=== PATIENT | male | born 1955 | race Caucasian/White ===

== ENCOUNTER 2018-07-08 13:28 | Inpatient (IN) ==
[2018-07-08] MEDS ORDERED: MethylPREDNISolone Sod Succinate Inj 125 MG/2 ML Vial IV.PUSH ONE (14:06)
--- NOTE | 2018-07-08 14:10 | ED ---
HPI General Chief complaint: Respiratory Symptoms Stated complaint: respiratory Time Seen by Provider: 07/08/18 14:06 History of Present Illness HPI narrative: This is a 63-year-old smoker with history of COPD, diabetes, hypertension, hyperlipidemia who presents for evaluation of dyspnea, wheezing and cough. Symptoms started 2 weeks ago. Initially he thought that it was just bronchitis and that he could control it at home however his symptoms have worsened which prompted evaluation. He reports that he is using his albuterol inhaler every 2-3 hours. He denies chest pain, fevers or chills, abdominal pain , nausea or vomiting, lower extremity edema. He reports that he is compliant with his medications. Symptoms are moderate. He has no other complaints at this time. Related Data Home Medications Medication Instructions Recorded Confirmed albuterol sulfate 2 puff INHALATION Q6H 07/08/18 07/08/18 etodolac 300 mg PO BID 07/08/18 07/08/18 glipizide 10 mg PO BID 07/08/18 07/08/18 hydrochlorothiazide 25 mg PO DAILY 07/08/18 07/08/18 metformin 500 mg PO BID 07/08/18 07/08/18 simvastatin [Zocor] 40 mg PO HS 07/08/18 07/08/18 tramadol 50 mg PO Q4-6H PRN 07/08/18 07/08/18 Allergies Allergy/AdvReac Type Severity Reaction Status Date / Time cephalexin Allergy Severe RASH Verified 07/08/18 14:29 Review of Systems ROS: all other systems reviewed are negative PMFSH Medical History Medical History Back pain (Acute) COPD (chronic obstructive pulmonary disease) (Acute) Diabetes (Acute) HTN (hypertension) (Acute) Surgical History Surgical History No history of previous surgery (Acute) Social History Social History Substance History: No History of Abuse Second Hand Smoke Exposure: Yes Smoking Status: Former smoker Tobacco Type: Cigarettes How Often Do You Have a Drink Containing Alcohol: Never Recent Travel in [facility] within the Last 8 Weeks: No Recent Out of Country Travel within the Last 8 Weeks: No Exam Narrative Exam Narrative: GENERAL: This is a well-developed well-nourished male in no acute distress. His vital signs have been reviewed. SKIN: Warm and dry. HEAD: Atraumatic. Normocephalic. EYES: Pupils equal and round. No scleral icterus. No injection or drainage. ENT: No nasal bleeding or discharge. Mucous membranes pink and moist. NECK: Trachea midline. No JVD. CARDIOVASCULAR: Regular rate and rhythm. No murmur appreciated. RESPIRATORY: No accessory muscle use. Diffuse inspiratory and expiratory wheezing noted bilaterally with prolonged expiratory phase. No crackles. GASTROINTESTINAL: Abdomen soft, non-tender, nondistended. Hepatic and splenic margins not palpable. MUSCULOSKELETAL: No obvious deformities. No clubbing. No cyanosis. No edema. NEUROLOGICAL: Awake and alert. No obvious cranial nerve deficits. Motor grossly within normal limits. Normal speech. Course Initial Documented Vital Signs Temperature 97.8 F 07/08/18 13:56 Pulse Rate 119 H 07/08/18 13:56 Respiratory Rate 26 H 07/08/18 13:56 Blood Pressure 215/98 H 07/08/18 13:56 Pulse Oximetry 94 L 07/08/18 13:56 Last Documented Vital Signs Temperature 97.8 F 07/08/18 13:56 Pulse Rate 104 H 07/08/18 15:59 Respiratory Rate 25 H 07/08/18 15:59 Blood Pressure 123/79 07/08/18 15:59 Pulse Oximetry 95 07/08/18 15:59 Medical Decision Making AURELIANO Attestation AURELIANO supervised visit: Yes Attestation: I was present with the advanced practitioner during the management of this patient. I discussed the case with the advanced practitioner and agree with the findings and plan as documented in their note except as noted below. 63yM presenting with COPD exacerbation x 2 weeks, worse over the past 2-3 days. The patient reports that he's been using his albuterol inhaler at home with minimal relief of symptoms. He had full-field bilateral wheeze on arrival, received solumedrol and 3 duonebs with some relief of symptoms but is still audibly wheezing. Hi magnesium is low and was aggressively repleted. He also had elevated BP on arrival which improved with 1 dose of enalapril. Case discussed with Dr. Bradford of [facility]. [facility] Narrative Medical decision making narrative: This is a 63-year-old male with history of COPD, hyperlipidemia who presents with 2 weeks of cough and dyspnea. On examination he has diffuse inspiratory and expiratory wheezing bilaterally. He is also hypertensive and tachycardic. The patient was placed on ECG monitoring pulse oximetry. Lab work, chest x-ray, twelve-lead EKG ordered. The patient will be given DuoNeb treatment, Solu-Medrol, enalapril. He will be monitored closely. Upon reexamination the patient feels slightly improved. His lab work has been reviewed. He has a magnesium of 1.1, his blood sugars 358. He will be given IV magnesium as well as azithromycin. His blood pressure is normalized. The patient was ambulated down the hallway. He sat back down and he reports persistent shortness of breath. He still has audible wheezing. His oxygen saturation is approximately 93%. At this point time the plan will be to admit him for COPD exacerbation for observation. He is agreeable. Medical Screen Exam Complete: Yes Emergency Medical Condition: Yes Differential Diagnosis Differential Diagnosis: COPD exacerbation, pulmonary embolism, bronchitis, pneumothorax, pleural effusion, new onset CHF, pneumonia Lab Data Result diagrams: 07/08/18 14:31 07/08/18 14:31 Lab Results 07/08/18 07/08/18 07/08/18 Range/Units 14:31 14:31 14:31 WBC 12.9 H (4.0-11.0) th/mm3 RBC 4.97 (4.50-5.90) mil/mm3 Hgb 15.5 (13.0-17.0) gm/dL Hct 46.2 (39.0-51.0) % MCV 93.0 (80.0-100.0) fL MCH 31.2 (27.0-34.0) pg MCHC 33.5 (32.0-36.0) % RDW 12.9 (11.6-17.2) % Plt Count 292 (150-450) th/mm3 MPV 9.5 (7.0-11.0) fL Neut % (Auto) 65.6 (16.0-70.0) % Lymph % (Auto) 14.9 (9.0-44.0) % Morton % (Auto) 8.1 H (0.0-8.0) % Eos % (Auto) 9.9 H (0.0-4.0) % Baso % (Auto) 1.5 (0.0-2.0) % Neut # (Auto) 8.5 H (1.8-7.7) th/mm3 Lymph # (Auto) 1.9 (1.0-4.8) th/mm3 Morton # (Auto) 1.0 H (0.0-0.9) th/mm3 Eos # (Auto) 1.3 H (0.0-0.4) th/mm3 Baso # (Auto) 0.2 (0.0-0.2) th/mm3 WBC Differential . Differential Comment Auto diff final Sodium 133 L (136-145) meq/L Potassium 3.8 (3.5-5.1) meq/L Chloride 93 L (98-107) meq/L Carbon Dioxide 31.6 (21.0-32.0) meq/L Anion Gap 8 (5-15) meq/L BUN 13 (7-18) mg/dL Creatinine 1.23 (0.60-1.30) mg/dL Estimated GFR 60 L (>89) mL/min Random Glucose 358 H (74-106) mg/dL Calcium 8.4 L (8.5-10.1) mg/dL Magnesium 1.1 L (1.5-2.5) mg/dL Total Bilirubin 0.4 (0.2-1.0) mg/dL AST 25 (15-37) U/L ALT 31 (12-78) U/L Alkaline Phosphatase 62 (45-117) U/L Total Creatine Kinase 92 (39-308) U/L Troponin I Less than 0.02 L (0.02-0.05) ng/mL B-Natriuretic Peptide 8 (0-100) pg/mL Total Protein 7.8 (6.4-8.2) g/dL Albumin 3.6 (3.4-5.0) g/dL Imaging Data Radiologist's impression: Chest X-Ray 07/08/18 14:06 CONCLUSION: No acute intrathoracic disease. Discharge Plan Discharge Disposition Patient Disposition: 30 Still Patient Discharge Condition Condition: Stable Discharge Details Diagnosis: COPD exacerbation, Hypomagnesemia Physicians Team ED Provider: Manda Tejeda ED Midlevel Provider: Dallas Morillo Primary Care Provider: [facility]ician 's Attending Provider: Felicita Bradford Status ED Status: Admitted Observation Patient
--- NOTE | 2018-07-08 14:55 | XR ---
EXAM DATE: 07/08/2018 2:06 PM EDT AGE/SEX: 63 years / Male INDICATIONS: COPD CLINICAL DATA: This is the patient's initial encounter. Patient reports that signs and symptoms have been present for 1 day and indicates a pain score of 0/10. MEDICAL/SURGICAL HISTORY: . diabetes None. COMPARISON: No prior exams available for comparison. FINDINGS: A single AP view of the chest demonstrates the lungs to be symmetrically aerated without evidence of mass, infiltrate or effusion. The cardiomediastinal contours are unremarkable. Osseous structures a re intact. CONCLUSION: No acute intrathoracic disease. Electronically signed by: Chucky Olivares MD 07/08/2018 2:54 PM EDT
[2018-07-08 14:57] LABS: Baso # (Auto) 0.2 th/mm3 (0.0-0.2); Baso % (Auto) 1.5 % (0.0-2.0); Eos # (Auto) 1.3 th/mm3 (0.0-0.4); Eos % (Auto) 9.9 % (0.0-4.0); Hematocrit 46.2 % (39.0-51.0); Hemoglobin 15.5 gm/dL (13.0-17.0); Lymph # (Auto) 1.9 th/mm3 (1.0-4.8); Lymph % (Auto) 14.9 % (9.0-44.0); Mean Corpuscular HGB Conc 33.5 % (32.0-36.0); Mean Corpuscular Hemoglobin 31.2 pg (27.0-34.0); Mean Platelet Volume 9.5 fL (7.0-11.0); Mono % (Auto) 8.1 % (0.0-8.0); Neut # (Auto) 8.5 th/mm3 (1.8-7.7); Neut % (Auto) 65.6 % (16.0-70.0); Platelet Count 292 th/mm3 (150-450); Red Blood Count 4.97 mil/mm3 (4.50-5.90); Red Cell Distribution Width 12.9 % (11.6-17.2); White Blood Count 12.9 th/mm3 (4.0-11.0)
[2018-07-08 15:30] LABS: Alanine Aminotransferase 31 U/L (12-78); Albumin 3.6 g/dL (3.4-5.0); Alkaline Phosphatase 62 U/L (45-117); Anion Gap 8 meq/L (5-15); Aspartate Aminotransferase 25 U/L (15-37); Blood Urea Nitrogen 13 mg/dL (7-18); Calcium 8.4 mg/dL (8.5-10.1); Carbon Dioxide 31.6 meq/L (21.0-32.0); Chloride 93 meq/L (98-107); Glomerular Filtration Rate 60 mL/min (>89); Glucose,Random 358 mg/dL (74-106); Magnesium 1.1 mg/dL (1.5-2.5); Sodium 133 meq/L (136-145); Total Protein 7.8 g/dL (6.4-8.2)
[2018-07-08 15:33] LABS: Creatine Kinase 92 U/L (39-308); Potassium 3.8 meq/L (3.5-5.1)
[2018-07-08] MEDS ORDERED: Mag Sulf 1 gm/100 ml Premix 100 ML IV.SIG ONE (15:38)
[2018-07-08] MEDS ORDERED: Magnesium Sulfate Inj 2 GM in Sodium Chlor 0.9% Inj 96 ML IV.SIG ONE ×2 (15:44→16:41)
[2018-07-08] MEDS ORDERED: Dextrose 50% in Water 50 ML Vial IV.PUSH PRN (16:56)
[2018-07-08] MEDS ORDERED: Bisacodyl 10 MG Supp RECTAL PRN (16:56)
--- NOTE | 2018-07-08 17:22 | P.HPIM ---
History of Present Illness Primary Care Physician: [facility] History of Present Illness: This patient is a 63-year-old male with a diagnosis of hypertension, dyspareunia , diabetes mellitus type 2. The patient has an extensive tobacco smoking history, he states he smokes approximately 2 packs/day over the past 40 years. He stopped smoking 3 weeks ago because of his shortness of breath. He came into the emergency department today with complaints of shortness of breath worse on exertion. He has a mild nonproductive cough. No fevers or chills. He denies any chest pain, no abdominal pain, no diarrhea. He uses an albuterol inhaler at home and was not getting any relief with inhaler. Past medical history significant for hypertension, dyspnea, diabetes mellitus type 2 Past surgical history none Social history he smokes 2 packs of cigarettes per day over the past 40 years. Over the past couple of years he has been smoking less a proximally 1 pack/day. He also has a history of marijuana use and denies any recent history of drug use. He says in his 20s he occasionally used speed. Family history significant for diabetes. Review of Systems All other systems reviewed negative except as stated in HPI PMFSH - History History Provided By: Patient - Medical History Medical History: Medical History (Last Updated 07/08/18 @ 14:26 by Gita Richmond) Back pain COPD (chronic obstructive pulmonary disease) Diabetes HTN (hypertension) - Surgical History Surgical History: Surgical History (Last Updated 07/08/18 @ 14:27 by Gita Richmond) No history of previous surgery - Tobacco History Second Hand Smoke Exposure: Yes Tobacco Use In Past 30 Days: Yes Smoking Status: Former smoker Tobacco Type: Cigarettes - Alcohol History How Often Do You Have a Drink Containing Alcohol: Never - Substance Use History Substance History: No History of Abuse - Travel History Recent Travel in the [place] Within the Last 8 Weeks: No Recent Travel Out of the Country Within the Last 8 Weeks: No - Immunization History Tetanus Immunization: <5 Years Medications and Allergies Active Medications: Active Medications Al Hydroxide/Mg Hydroxide (Milk Of Marija Liq) 30 ml PO Q12H PRN PRN Reason: Mild Constipation Albuterol (Albuterol Neb (Prn)) 2.5 mg NEB Q2H PRN PRN Reason: SHORTNESS OF BREATH Albuterol (Duoneb Neb (Emiliano)) 1 ampul NEB Q4HR NEB EMILIANO Bisacodyl (Dulcolax Supp) 10 mg RECTAL DAILY PRN PRN Reason: SEVERE CONSITIPATION Dextrose (D50w Vial) 50 ml IV.PUSH UNSCH PRN PRN Reason: PER HYPOGLYCEMIA PROTOCOL Enoxaparin Sodium (Lovenox Inj) 40 mg SQ Q24H EMILIANO Glucagon (Glucagon Inj) 1 mg OTHER PRN PRN PRN Reason: for Hypoglycemia Protocol Magnesium Sulfate 2 gm/ Sodium (Chloride) 100 mls @ 50 mls/hr IV.SIG ONCE ONE Stop: 07/08/18 17:43 Last Admin: 07/08/18 16:44 Dose: 50 mls/hr Magnesium Sulfate 2 gm/ Sodium (Chloride) 100 mls @ 50 mls/hr IV.SIG ONCE ONE Stop: 07/08/18 18:40 Last Admin: 07/08/18 16:44 Dose: Not Given Insulin Aspart (Novolog Insulin Correctional Sugar Inj) 0 unit SQ ACHS EMILIANO; Protocol Lactulose (Lactulose Liq) 30 ml PO DAILY PRN PRN Reason: SEVERE CONSITIPATION Methylprednisolone Sodium Succinate (Solumedrol Inj) 60 mg IV.PUSH Q6H EMILIANO Ondansetron HCl (Zofran Inj) 4 mg IV.PUSH Q6H PRN PRN Reason: NAUSEA OR VOMITING Senna/Docusate Sodium (Nikia-Colace) 1 tab PO BID EMILIANO Sennosides (Senokot) 17.2 mg PO Q12H PRN PRN Reason: Moderate Constipation Sodium Chloride (Ns Flush) 2 ml IV.FLUSH BID [facility] Sodium Chloride (Ns Flush) 2 ml IV.FLUSH PRN PRN PRN Reason: FLUSH AFTER USING IV ACCESS Sodium Chloride (Ns Flush) 2 ml IV.FLUSH PRN PRN PRN Reason: FLUSH AFTER USING IV ACCESS Allergies Allergy/AdvReac Type Severity Reaction Status Date / Time cephalexin Allergy Severe RASH Verified 07/08/18 14:29 Home Medications Medication Instructions Recorded Confirmed Type albuterol sulfate 2 puff INHALATION Q6H 07/08/18 07/08/18 History etodolac 300 mg PO BID 07/08/18 07/08/18 History glipizide 10 mg PO BID 07/08/18 07/08/18 History hydrochlorothiazide 25 mg PO DAILY 07/08/18 07/08/18 History metformin 500 mg PO BID 07/08/18 07/08/18 History simvastatin [Zocor] 40 mg PO HS 07/08/18 07/08/18 History tramadol 50 mg PO Q4-6H PRN 07/08/18 07/08/18 History Exam Vital signs: Vital Signs 07/08/18 13:56 07/08/18 14:26 07/08/18 14:45 Temperature 97.8 F Pulse Rate 119 H 106 H 101 H Respiratory Rate 26 H 27 H 18 Blood Pressure 215/98 H 224/111 H Pulse Oximetry 94 L 95 07/08/18 15:59 Temperature Pulse Rate 104 H Respiratory Rate 25 H Blood Pressure 123/79 Pulse Oximetry 95 Intake & Output 07/07/18 07/08/18 07/08/18 18:59 06:59 18:59 Weight 93.894 kg Narrative: General patient complaining of some shortness of breath HEENT extraocular movements are intact, clear oropharyngeal mucosa, no JVD Cardiovascular S1-S2 audible, RRR, no murmurs rubs or gallops Respiratory wheezing bilaterally Abdomen soft, nontender, nondistended, normal bowel sounds Extremities no edema 2+ distal pulses in bilateral upper and lower extremities Neuro no neurological deficits, patient was all 4 extremities sensation is intact bilaterally Results - Labs CBC & Chem 7: 07/08/18 14:31 07/08/18 14:31 Labs: Short CBC 07/08/18 Range/Units 14:31 WBC 12.9 H (4.0-11.0) th/mm3 Hgb 15.5 (13.0-17.0) gm/dL Hct 46.2 (39.0-51.0) % Plt Count 292 (150-450) th/mm3 [facility] 07/08/18 14:31 Sodium 133 L Potassium 3.8 Chloride 93 L Carbon Dioxide 31.6 BUN 13 Creatinine 1.23 Calcium 8.4 L Cardiac Enzymes 07/08/18 Range/Units 14:31 Total Creatine Kinase 92 (39-308) U/L Troponin I Less than 0.02 L (0.02-0.05) ng/mL Liver Function 07/08/18 Range/Units 14:31 Total Bilirubin 0.4 (0.2-1.0) mg/dL AST 25 (15-37) U/L ALT 31 (12-78) U/L Alkaline Phosphatase 62 (45-117) U/L Albumin 3.6 (3.4-5.0) g/dL - Imaging Impressions Chest X-Ray 07/08/18 14:06 CONCLUSION: No acute intrathoracic disease. Caprini VTE Risk Assessment Caprini VTE Risk Assessment: Moderate/High Risk (score >= 2) (Lovenox for DVT prophylaxis) Caprini Risk Assessment Model: Point Value = 1 Point Value = 2 Point Value = 3 Point Value = 5 Age 41-60 Minor surgery BMI > 25 kg/m2 Swollen legs Varicose veins or History of unexplained or recurrent spontaneous Oral contraceptives or hormone replacement Sepsis (< 1 month) Serious lung disease, including pneumonia (< 1 month) Abnormal pulmonary function Acute myocardial infarction Congestive heart failure (< 1 month) History of inflammatory bowel disease Medical patient at bed rest Age 61-74 Arthroscopic surgery Major open surgery (> 45 min) Laparoscopic surgery (> 45 min) Malignancy Confined to bed (> 72 hours) Immobilizing plaster cast Central venous access Age >= 75 History of VTE Family history of VTE Factor V Leiden Prothrombin [id number] Lupus anticoagulant Anticardiolipin antibodies Elevated serum homocysteine Heparin-induced thrombocytopenia Other congenital or acquired thrombophilia Stroke (< 1 month) Elective arthroplasty Hip, pelvis, or leg fracture Acute spinal cord injury (< 1 month) Prophylaxis Regimen: Total Risk Factor Score Risk Level Prophylaxis Regimen 0-1 Low Early ambulation 2 Moderate Order ONE of the following: *Sequential Compression Device (SCD) *Heparin 5000 units SQ BID 3-4 Higher Order ONE of the following medications: *Heparin 5000 units SQ TID *Enoxaparin/Lovenox 40 mg SQ daily (WT < 150 kg, CrCl > 30 mL/min) *Enoxaparin/Lovenox 30 mg SQ daily (WT < 150 kg, CrCl > 10-29 mL/min) *Enoxaparin/Lovenox 30 mg SQ BID (WT < 150 kg, CrCl > 30 mL/min) AND/OR *Sequential Compression Device (SCD) 5 or more Highest Order ONE of the following medications: *Heparin 5000 units SQ TID (Preferred with Epidurals) *Enoxaparin/Lovenox 40 mg SQ daily (WT < 150 kg, CrCl > 30 mL/min) *Enoxaparin/Lovenox 30 mg SQ daily (WT < 150 kg, CrCl > 10-29 mL/min) *Enoxaparin/Lovenox 30 mg SQ BID (WT < 150 kg, CrCl > 30 mL/min) AND *Sequential Compression Device (SCD) Assessment and Plan - Plan This patient is a 63-year-old male with a diagnosis of hypertension, dyspareunia , diabetes mellitus type 2. The patient has an extensive tobacco smoking history, he states he smokes approximately 2 packs/day over the past 40 years. He stopped smoking 3 weeks ago because of his shortness of breath. He came into the emergency department today with complaints of shortness of breath worse on exertion. He has a mild nonproductive cough. No fevers or chills. He denies any chest pain, no abdominal pain, no diarrhea. He uses an albuterol inhaler at home and was not getting any relief with inhaler. 1. COPD exacerbation Patient presented with symptoms mentioned above. There is a significant amount of wheezing on auscultation bilaterally. Patient is also tachycardic, slight elevation in WBC count. He was given a breathing treatment in the emergency department. He was started on IV steroids, breathing treatments, p.o. antibiotics. Chest x-ray was done which does not show any clear evidence of infiltrate. Patient was placed in observation, monitor on telemetry. Supplemental oxygen as needed. 2. Electrolyte abnormalities. Patient had a low magnesium level 1.1. Initial lites were replaced. Lovenox for DVT prophylaxis.
[2018-07-08] MEDS: Sod Chloride 0.9% Inj 1,000 ML IV.CONT SCH (17:55)
[2018-07-08] MEDS: Enoxaparin Inj 40 MG/0.4 ML Syringe SQ SCH (17:56)
[2018-07-08] MEDS: levoFLOXacin 750 MG Tablet PO SCH (17:56)
[2018-07-08] MEDS: Insulin NovoLOG Aspart Correctional Sugar Inj SQ SCH ×2 (17:56→23:35)
[2018-07-08] MEDS: MethylPREDNISolone Sod Succinate Inj 125 MG/2 ML Vial IV.PUSH SCH (19:48)
[2018-07-08] MEDS: Senna/Docusate Sodium 8.6/50 MG Tablet PO SCH (22:07)
[2018-07-09] MEDS: MethylPREDNISolone Sod Succinate Inj 125 MG/2 ML Vial IV.PUSH SCH ×4 (02:52→21:58)
[2018-07-09] MEDS: Sod Chloride 0.9% Inj 1,000 ML IV.CONT SCH ×3 (04:08→18:21)
[2018-07-09] MEDS: Insulin NovoLOG Aspart Correctional Sugar Inj SQ SCH ×4 (07:57→21:59)
[2018-07-09] MEDS: Senna/Docusate Sodium 8.6/50 MG Tablet PO SCH ×3 (07:59→21:58)
[2018-07-09] MEDS: levoFLOXacin 750 MG Tablet PO SCH (07:59)
[2018-07-09] MEDS: guaiFENesin 600 MG ER Tablet PO SCH ×2 (11:41→21:57)
[2018-07-09] MEDS: glipiZIDE 10 MG Tablet PO SCH ×2 (11:41→17:35)
[2018-07-09] MEDS: Insulin Detemir Inj 1,000 UNIT/10 ML Vial SQ SCH ×2 (11:41→21:59)
[2018-07-09 12:10] LABS: Carbon Dioxide 26.9 meq/L (21.0-32.0); Magnesium 1.2 mg/dL (1.5-2.5); Potassium 3.3 meq/L (3.5-5.1)
[2018-07-09] MEDS: Budesonide-Formoterol 160/4.5 MCG 6 GM Inhaler INH SCH ×2 (13:04→21:57)
[2018-07-09] MEDS: Tiotropium Bromide 18 MCG/ACT Inhaler INH SCH (13:04)
[2018-07-09] MEDS ORDERED: Magnesium Oxide 400 MG Tablet PO ONE (14:38)
--- NOTE | 2018-07-09 14:47 | P.PN ---
Subjective Interval history: Follow-up on patient with diabetes, COPD exacerbation. Patient seen and examined. Patient continues to report wheezing and shortness of breath especially with minimal exertion. He denies any complaints of chest pain. He denies any fever or chills. He reports feeling congested with a dry cough and is unable to cough anything up. Physical Exam Vital signs: Vital Signs 07/08/18 14:45 07/08/18 15:59 07/08/18 18:05 Temperature Pulse Rate 101 H 104 H 106 H Respiratory Rate 18 25 H 28 H Blood Pressure 123/79 Pulse Oximetry 95 07/08/18 20:00 07/08/18 23:22 07/09/18 00:00 Temperature 97.6 F 97.7 F Pulse Rate 123 H 115 H 115 H Respiratory Rate 16 22 16 Blood Pressure 124/81 112/69 Pulse Oximetry 93 L 95 98 07/09/18 03:15 07/09/18 08:00 07/09/18 08:08 Temperature 98.8 F Pulse Rate 107 H 118 H 102 H Respiratory Rate 18 18 16 Blood Pressure 154/87 H Pulse Oximetry 93 L 94 L 07/09/18 11:53 07/09/18 11:58 Temperature 98.1 F Pulse Rate 117 H 114 H Respiratory Rate 16 18 Blood Pressure 149/78 H Pulse Oximetry 99 Intake & Output 07/08/18 07/09/18 07/09/18 18:59 06:59 18:59 Intake Total 1050 / 1050 Balance 1050 / 1050 Weight 207 kg Intake: IV 1050 / 1050 NS Inj 1,000 ML @ 84 mls/hr IV. 1000 / 1000 CONT .[id number] [facility] Rx#:[id number] Magnesium Sulfate Inj 2 GM In 50 / 50 NS Inj 96 ML @ 50 mls/hr IV.SIG ONCE ONE Rx#:[id number] Other: # Voids 3 Date of Last Bowel Movement 07/10/18 07/10/18 Weight On Admission 207 kg Narrative: GENERAL: WDWN male patient, INAD. Awake and alert. Able to have conversation without any noticeable respiratory difficulties. SKIN: Warm and dry. No rash. HEENT: Atraumatic. Normocephalic. Pupils equal and round. No scleral icterus. No injection or drainage. No nasal bleeding or discharge. Mucous membranes pink and moist. NECK: Trachea midline. CARDIOVASCULAR: Regular rate and rhythm. RESPIRATORY: No accessory muscle use. Tight air entry with diffuse wheezing noted in all lung adames. GASTROINTESTINAL: Abdomen soft, non-tender, nondistended. +BS. MUSCULOSKELETAL: Extremities without clubbing, cyanosis, or edema. No obvious deformities. NEUROLOGICAL: Awake and alert. No obvious cranial nerve deficits. Motor grossly within normal limits. Able to move all extremities spontaneously. Normal speech. PSYCHIATRIC: Appropriate mood and affect; insight and judgment normal. Results - Labs CBC & Chem 7: 07/08/18 14:31 07/09/18 11:09 Laboratory Results - last 24 hr 07/08/18 07/08/18 07/08/18 14:31 14:31 14:31 WBC 12.9 H RBC 4.97 Hgb 15.5 Hct 46.2 MCV 93.0 MCH 31.2 MCHC 33.5 RDW 12.9 Plt Count 292 MPV 9.5 Neut % (Auto) 65.6 Lymph % (Auto) 14.9 Knox % (Auto) 8.1 H Eos % (Auto) 9.9 H Baso % (Auto) 1.5 Neut # (Auto) 8.5 H Lymph # (Auto) 1.9 Knox # (Auto) 1.0 H Eos # (Auto) 1.3 H Baso # (Auto) 0.2 WBC Differential . Differential Comment Auto diff final Sodium 133 L Potassium 3.8 Chloride 93 L Carbon Dioxide 31.6 Anion Gap 8 BUN 13 Creatinine 1.23 Estimated GFR 60 L POC Glucose Random Glucose 358 H Calcium 8.4 L Magnesium 1.1 L Total Bilirubin 0.4 AST 25 ALT 31 Alkaline Phosphatase 62 Total Creatine Kinase 92 Troponin I Less than 0.02 L B-Natriuretic Peptide 8 Total Protein 7.8 Albumin 3.6 07/08/18 07/08/18 07/08/18 17:55 21:47 23:40 WBC RBC Hgb Hct MCV MCH MCHC RDW Plt Count MPV Neut % (Auto) Lymph % (Auto) Knox % (Auto) Eos % (Auto) Baso % (Auto) Neut # (Auto) Lymph # (Auto) Knox # (Auto) Eos # (Auto) Baso # (Auto) WBC Differential Differential Comment Sodium Potassium Chloride Carbon Dioxide Anion Gap BUN Creatinine Estimated GFR POC Glucose 401 H 547 H* Random Glucose 484 H* D Calcium Magnesium Total Bilirubin AST ALT Alkaline Phosphatase Total Creatine Kinase Troponin I B-Natriuretic Peptide Total Protein Albumin 07/09/18 07/09/18 07/09/18 03:38 07:29 11:09 WBC RBC Hgb Hct MCV MCH MCHC RDW Plt Count MPV Neut % (Auto) Lymph % (Auto) Knox % (Auto) Eos % (Auto) Baso % (Auto) Neut # (Auto) Lymph # (Auto) Knox # (Auto) Eos # (Auto) Baso # (Auto) WBC Differential Differential Comment Sodium 133 L Potassium 3.3 L Chloride 94 L Carbon Dioxide 26.9 Anion Gap 12 BUN 20 H Creatinine 1.51 H Estimated GFR 47 L POC Glucose 392 H 386 H Random Glucose 417 H Calcium 8.0 L Magnesium 1.2 L Total Bilirubin AST ALT Alkaline Phosphatase Total Creatine Kinase Troponin I B-Natriuretic Peptide Total Protein Albumin 07/09/18 07/09/18 12:01 13:12 WBC RBC Hgb Hct MCV MCH MCHC RDW Plt Count MPV Neut % (Auto) Lymph % (Auto) Knox % (Auto) Eos % (Auto) Baso % (Auto) Neut # (Auto) Lymph # (Auto) Knox # (Auto) Eos # (Auto) Baso # (Auto) WBC Differential Differential Comment Sodium Potassium Chloride Carbon Dioxide Anion Gap BUN Creatinine Estimated GFR POC Glucose 412 H 385 H Random Glucose Calcium Magnesium Total Bilirubin AST ALT Alkaline Phosphatase Total Creatine Kinase Troponin I B-Natriuretic Peptide Total Protein Albumin - Imaging Impressions Chest X-Ray 07/08/18 14:06 CONCLUSION: No acute intrathoracic disease. Assessment and Plan - Plan 63yo male with PMHX of heavy tobacco use, HTN and DM type 2 admitted with COPD exacerbation COPD, acute exacerbation CXR with no acute cardiopulmonary process Patient still with tight air entry and significant wheezing on exam Continue on scheduled DuoNeb Continue on oral Levaquin Continue on IV steroids Add Symbicort and Spiriva Begin Mucinex Incentive spirometry as needed Patient may need home oxygen walk test prior to discharge ALLY Creatinine 1.51 hold home Metformin and HCTZ on IVF obtain UA avoid nephrotoxic agents monitor kidney function Hypertension hold HCTZ as above Start Norvasc 5mg daily Monitor BP and adjust treatment accordingly Diabetes, poorly controlled Patient with elevated blood sugars on IV steroids Resume home glipizide Begin on long-acting Levemir 5 units twice daily Obtain hemoglobin A1c Continue on Accu-Cheks and insulin sliding scale Hypokalemia K 3.3 po repletion ordered repeat BMP in am to monitor response Hypomagnesemia Mag level 1.1 replacement given, Mag 1.2 give 800mg x 1 dose now repeat mag in am DVT prophylaxis Lovenox Code Status: Full Discussed Condition With: patient, nursing staff, Dr. Flores Discharge Planning: Not ready for discharge. Discharge pending clinical improvement.
[2018-07-09] MEDS: amLODIPine 5 MG Tablet PO SCH (16:32)
[2018-07-09] MEDS: Enoxaparin Inj 40 MG/0.4 ML Syringe SQ SCH (17:35)
[2018-07-09 18:00] LABS: Hemoglobin A1c 11.4 % (4.3-6.0)
[2018-07-09] MEDS ORDERED: Metoprolol Tartrate 25 MG Tablet PO ONE (18:00)
[2018-07-10] MEDS: MethylPREDNISolone Sod Succinate Inj 125 MG/2 ML Vial IV.PUSH SCH ×2 (02:58→08:50)
--- NOTE | 2018-07-10 07:59 | P.PN ---
Subjective Interval history: Follow-up on patient with diabetes, COPD exacerbation. Patient seen and examined. Patient complains of shortness of breath and heart palpitations with coughing episodes. He denies any sputum production. He denies any complaints of chest pain, dizziness, lightheadedness or weakness. Physical Exam Vital signs: Vital Signs 07/09/18 08:00 07/09/18 08:08 07/09/18 11:53 Temperature 98.8 F Pulse Rate 118 H 102 H 117 H Respiratory Rate 18 16 16 Blood Pressure 154/87 H Pulse Oximetry 93 L 94 L 07/09/18 11:58 07/09/18 16:00 07/09/18 16:21 Temperature 98.1 F 98.1 F Pulse Rate 114 H 122 H 104 H Respiratory Rate 18 16 20 Blood Pressure 149/78 H 118/66 Pulse Oximetry 99 94 L 07/09/18 18:21 07/09/18 19:25 07/09/18 20:00 Temperature 97.7 F Pulse Rate 108 H 100 H Respiratory Rate 18 19 Blood Pressure 111/62 103/66 Pulse Oximetry 95 93 L 07/09/18 23:51 07/10/18 04:00 Temperature 97.1 F L 97.5 F L Pulse Rate 102 H 90 Respiratory Rate 19 18 Blood Pressure 137/64 147/77 H Pulse Oximetry 93 L 93 L Intake & Output 07/09/18 07/10/18 07/10/18 18:59 06:59 18:59 Other: # Voids 4 Date of Last Bowel Movement 07/10/18 07/10/18 Narrative: GENERAL: WDWN male patient, INAD. Awake and alert. Able to have conversation without any noticeable respiratory difficulties. SKIN: Warm and dry. No rash. HEENT: Atraumatic. Normocephalic. Pupils equal and round. No scleral icterus. No injection or drainage. No nasal bleeding or discharge. Mucous membranes pink and moist. NECK: Trachea midline. CARDIOVASCULAR: Tachycardic. RESPIRATORY: No accessory muscle use. Tight air entry with diffuse wheezing noted in all lung adames, improving with improved air entry. GASTROINTESTINAL: Abdomen soft, non-tender, nondistended. +BS. MUSCULOSKELETAL: Extremities without clubbing, cyanosis, or edema. No obvious deformities. NEUROLOGICAL: Awake and alert. No obvious cranial nerve deficits. Motor grossly within normal limits. Able to move all extremities spontaneously. Normal speech. PSYCHIATRIC: Appropriate mood and affect; insight and judgment normal. Results - Labs CBC & Chem 7: 07/08/18 14:31 07/10/18 07:30 Laboratory Results - last 24 hr 07/09/18 07/09/18 07/09/18 11:09 11:09 12:01 Sodium 133 L Potassium 3.3 L Chloride 94 L Carbon Dioxide 26.9 Anion Gap 12 BUN 20 H Creatinine 1.51 H Estimated GFR 47 L POC Glucose 412 H Random Glucose 417 H Hemoglobin A1c 11.4 H Calcium 8.0 L Magnesium 1.2 L 07/09/18 07/09/18 07/09/18 13:12 17:31 21:28 Sodium Potassium Chloride Carbon Dioxide Anion Gap BUN Creatinine Estimated GFR POC Glucose 385 H 386 H 311 H Random Glucose Hemoglobin A1c Calcium Magnesium Assessment and Plan - Plan 63yo male with PMHX of heavy tobacco use, HTN and DM type 2 admitted with COPD exacerbation New onset afib with RVR HR 135, EKG obtained showing afib with RVR, HR in 160s CHADsVASc score 2 patient denies any complaints of chest pain, shortness of breath, dizziness or palpitations patient placed on telemetry Patient given Diltiazem 20mg IVP by [facility] nurse with no improvement in HR Will transfer patient to [facility] and began on Cardizem drip Consult cardiology, appreciate assistance Obtain echocardiogram Obtain serial cardiac enzymes Obtain TSH Start on Eliquis COPD, acute exacerbation CXR with no acute cardiopulmonary process Patient still with tight air entry and significant wheezing on exam Continue on scheduled DuoNeb -concerned that albuterol may be contributing to patient's A. fib. Change to Xopenex. Continue on oral Levaquin Continue on IV steroids, begin taper to po steroids Continue on Symbicort and Spiriva Continue Mucinex Incentive spirometry as needed Home oxygen walk test completed, patient did not qualify ALLY Creatinine 1.51, improved to 1.11 continue to hold home HCTZ and Metformin obtain UA - specimen not sent avoid nephrotoxic agents monitor kidney function Hypertension hold HCTZ as above Started on Norvasc 5mg daily - will d/c as patient now on Cardizem drip Monitor BP and adjust treatment accordingly Diabetes, poorly controlled A1c 11.4 Patient with elevated blood sugars on IV steroids Resumed home glipizide, continue Increase Levemir to 10 units twice daily. Begin preprandial coverage with 3u Aspart TIDAC. Continue on Accu-Cheks and insulin sliding scale Hypokalemia K 3.3 resolved s/p repletion Hypomagnesemia Mag level 1.1 replacement given, Mag 1.6 give 400mg x 1 dose now DVT prophylaxis Eliquis Code Status: Full Discussed Condition With: patient, nursing staff, Dr. Flores Discharge Planning: Not ready for discharge. Discharge pending clinical improvement and cardiac clearance.
[2018-07-10 08:36] LABS: Calcium 7.7 mg/dL (8.5-10.1); Carbon Dioxide 29.5 meq/L (21.0-32.0); Magnesium 1.6 mg/dL (1.5-2.5)
[2018-07-10] MEDS: amLODIPine 5 MG Tablet PO SCH (08:51)
[2018-07-10] MEDS: levoFLOXacin 750 MG Tablet PO SCH (08:51)
[2018-07-10] MEDS: Insulin NovoLOG Aspart Correctional Sugar Inj SQ SCH ×4 (08:51→21:29)
[2018-07-10] MEDS: glipiZIDE 10 MG Tablet PO SCH ×2 (08:51→16:46)
[2018-07-10] MEDS: guaiFENesin 600 MG ER Tablet PO SCH ×2 (08:51→21:13)
[2018-07-10] MEDS: Insulin Detemir Inj 1,000 UNIT/10 ML Vial SQ SCH ×2 (08:51→21:16)
[2018-07-10] MEDS: Senna/Docusate Sodium 8.6/50 MG Tablet PO SCH ×2 (08:54→21:22)
[2018-07-10] MEDS: Tiotropium Bromide 18 MCG/ACT Inhaler INH SCH (08:54)
[2018-07-10] MEDS: Budesonide-Formoterol 160/4.5 MCG 6 GM Inhaler INH SCH ×2 (08:54→21:14)
[2018-07-10] MEDS ORDERED: Insulin Detemir Inj 1,000 UNIT/10 ML Vial SQ ONE (10:45)
[2018-07-10] MEDS ORDERED: Magnesium Oxide 400 MG Tablet PO ONE (11:00)
[2018-07-10] MEDS ORDERED: dilTIAZem 30 MG Tablet PO ONE (13:00)
[2018-07-10] MEDS: dilTIAZem Inj 125 MG in Sodium Chlor 0.9% Inj 100 ML IV.CONT PRN (14:36)
[2018-07-10] MEDS ORDERED: MethylPREDNISolone Sod Succinate Inj 125 MG/2 ML Vial IV.PUSH SCH (15:00)
--- NOTE | 2018-07-10 17:20 | ECHRPT ---
Indication: ATRIAL FIB/FLUTTER CONCLUSIONS Very technically difficult study. The left ventricular systolic function is moderately reduced with an estimated ejection fraction in the range of 40-45%. There is global left ventricular dysfunction. The right ventricular systoilc function is moderately decreased. Trace mitral valve regurgitation. There is trace tricuspid valve regurgitation. BP: / HR: Rhythm: Sinus MEASUREMENTS (Male / Female) Normal Values Technical Quality:Very technically difficult study 2D ECHO LVOT Diameter 1.5 cm Aortic Root Diameter 2.0 cm DOPPLER AV Peak Velocity 117.3 cm/s AV Peak Gradient 5.5 mmHg AV Mean Gradient 2.7 mmHg AV Velocity Time Integral 13.7 cm LVOT Peak Velocity 87.7 cm/s LVOT Peak Gradient 3.1 mmHg LVOT Velocity Time Integral 12.0 cm AV Area Cont Eq vti 1.5 cm AV Area Cont Eq pk 1.3 cm Mitral E Point Velocity 86.8 cm/s LV E' Lateral Velocity 11.1 cm/s Mitral E to LV E' Lateral Ratio 7.8 LV E' Septal Velocity 9.3 cm/s Mitral E to LV E' Septal Ratio 9.4 FINDINGS LEFT VENTRICLE Normal left ventricular size. Wall thickness is normal. The left ventricular systolic function is moderately reduced with an estimated ejection fraction in the range of 40-45%. There is global left ventricular dysfunction. RIGHT VENTRICLE The right ventricular size is normal. The right ventricular systoilc function is moderately decreased. LEFT ATRIUM The left atrial size is normal. RIGHT ATRIUM The right atrium is not well visualized. ATRIAL SEPTUM The interatrial septum not well visualized. AORTA The aortic root and proximal ascending aorta are not well visualized. MITRAL VALVE Grossly normal Trace mitral valve regurgitation. No mitral valve stenosis. AORTIC VALVE Grossly normal No aortic valve regurgitation. No aortic valve stenosis. TRICUSPID VALVE Grossly normal There is trace tricuspid valve regurgitation. PULMONARY VALVE The pulmonary valve is not well visualized. VESSELS The inferior vena cava is normal in size. PERICARDIUM No pericardial effusion. Quentin Long DO (Electronically Signed) Final Date:10 July 2018 17:19
[2018-07-10 18:09] LABS: Thyroid Stimulating Hormone 0.765 uIU/mL (0.358-3.740); Troponin I 0.09 ng/mL (0.02-0.05)
[2018-07-10 18:43] LABS: CKMB Percent 2.3 % (0.0-4.0)
[2018-07-10] MEDS: RESP: Levalbuterol 1.25 MG/3 ML Neb (SCH) NEB (20:20)
[2018-07-10 23:31] LABS: Troponin I 0.17 ng/mL (0.02-0.05)
--- NOTE | 2018-07-11 02:03 | ECG ---
Date Performed: 07/08/2018 Time Performed: 14:11:21 PTAGE: 63 years EKG: SINUS TACHYCARDIA ABNORMAL RHYTHM ECG NO PREVIOUS TRACING DOCTOR: Quentin Long Interpretating Date/Time 07/11/2018 02:01:30
[2018-07-11] MEDS: dilTIAZem Inj 125 MG in Sodium Chlor 0.9% Inj 100 ML IV.CONT PRN (02:35)
[2018-07-11 06:15] LABS: Hematocrit 42.5 % (39.0-51.0); Hemoglobin 14.2 gm/dL (13.0-17.0); Mean Corpuscular HGB Conc 33.5 % (32.0-36.0); Mean Corpuscular Hemoglobin 31.3 pg (27.0-34.0); Mean Corpuscular Volume 93.6 fL (80.0-100.0); Mean Platelet Volume 9.4 fL (7.0-11.0); Platelet Count 288 th/mm3 (150-450); Red Blood Count 4.55 mil/mm3 (4.50-5.90); Red Cell Distribution Width 12.9 % (11.6-17.2)
--- NOTE | 2018-07-11 06:40 | MB ---
cc: Quentin Long DO DATE: 07/10/2018 REASON FOR CONSULTATION: Atrial fibrillation with rapid ventricular response. HISTORY OF PRESENT ILLNESS: Bacilio Perry is a pleasant 63-year-old male who presented to [facility] Emergency Room due to shortness of breath. He states that the shortness of breath has been worse with exertion and has had a mild nonproductive cough. He denies fevers or chills. He denies any chest pain. He was found to be in atrial fibrillation with rapid ventricular response and started on a Cardizem drip, currently at 10 mg/hour. PAST MEDICAL HISTORY: 1. Hypertension. 2. Diabetes mellitus type 2. 3. Tobacco abuse. PAST SURGICAL HISTORY: Denies. ALLERGIES: CEPHALEXIN. MEDICATIONS: 1. Albuterol 2 puffs every 6 hours. 2. Tramadol 50 mg as needed. 3. Hydrochlorothiazide 25 mg daily. 4. Zocor 40 mg every night. 5. Etodolac 300 mg b.i.d. 6. Glipizide 10 mg b.i.d. 7. Metformin 500 mg b.i.d. SOCIAL HISTORY: The patient previously smoked 2 packs of cigarettes per day for the past 40 years. Over the past couple of years, he smoked less than a pack a day. He has tried to stop smoking over the past 3 weeks due to his shortness of breath. In his 20s he also used speed. FAMILY HISTORY: Denies sudden cardiac within the family. REVIEW OF SYSTEMS: Fourteen systems were reviewed including osteopathic. Pertinent positives and negatives above, otherwise negative. PHYSICAL EXAMINATION: VITAL SIGNS: Temperature 98.1, heart rate 135, blood pressure 131/73, respirations 18, pulse oximetry 94% on room air. GENERAL: The patient appears well, in no acute distress, alert, awake, and oriented x3. HEENT: Extraocular muscles intact. Mucous membranes moist. NECK: Supple. No JVD at 45 degrees. No carotid bruits heard bilaterally. Carotid upstroke is brisk in nature. HEART: Irregularly irregular and tachycardic. LUNGS: Have wheezing noted throughout with minimal air movement. ABDOMEN: Soft, nontender, nondistended. No organomegaly noted. EXTREMITIES: Show no clubbing, cyanosis, or edema. Femoral and distal pulses are intact bilaterally. NEUROLOGIC: No focal deficits. SKIN: Warm, dry, and intact. OSTEOPATHIC: Mild lordosis. No kyphoscoliosis or paraspinal tender points. DIAGNOSTIC DATA: Hemoglobin 15.5, hematocrit 46.2, platelets 292. Potassium 4.0, BUN 25, creatinine 1.11. Troponin 0.09. TSH is 0.765. Electrocardiogram (07/10/2018 at 12:28): Atrial fibrillation with rapid ventricular response, minimal ST depressions throughout. ASSESSMENT: 1. New onset atrial fibrillation with rapid ventricular response. 2. Acute chronic obstructive pulmonary disease exacerbation. 3. Acute kidney injury. 4. Cardiomyopathy with an ejection fraction of 40%-45%. RECOMMENDATIONS: 1. Mr. Perry presented with an acute COPD exacerbation and was found to be in atrial fibrillation with rapid ventricular response. 2. He has been placed on a Cardizem drip at 10 mg/hour and is still tachycardic. We will attempt to up this to 15 mg/hour. 3. If heart rate is still elevated on Cardizem at 15 mg/hour, we will plan on doing a JAZMIN with cardioversion in the morning. He will be left n.p.o. after midnight. 4. He does have a minimally elevated troponin, but this is due to his atrial fibrillation with rapid ventricular response. 5. He does have a cardiomyopathy with an ejection fraction of 40%-45%, but this is most likely due to his atrial fibrillation and cardiac stenting. He should eventually undergo a pharmacologic nuclear stress test due to the cardiomyopathy, but also the atrial fibrillation, to see if any ischemia is possibly the cause of these. At this time with his COPD exacerbation, I would not plan on doing it due to the risk of bronchospasm. This can be done in the outpatient setting. 6. As he has a CHADS-VASc of 2, he will be started on Eliquis for anticoagulation. 7. I spoke to him for greater than 3 minutes about tobacco cessation. Thank you for allowing me to see Bacilio Perry. If there are any questions, please do not hesitate to call. Quentin Long, DO COLBERT/alyssia , 11:59 PM , 12:10 AM
[2018-07-11 06:45] LABS: Calcium 7.9 mg/dL (8.5-10.1); Carbon Dioxide 30.6 meq/L (21.0-32.0); Potassium 3.8 meq/L (3.5-5.1)
[2018-07-11] MEDS: RESP: Levalbuterol 1.25 MG/3 ML Neb (SCH) NEB ×3 (07:55→21:22)
[2018-07-11] MEDS: predniSONE 20 MG Tablet PO SCH (08:43)
[2018-07-11] MEDS: glipiZIDE 10 MG Tablet PO SCH ×2 (08:44→17:50)
[2018-07-11] MEDS: levoFLOXacin 750 MG Tablet PO SCH (08:44)
[2018-07-11] MEDS: guaiFENesin 600 MG ER Tablet PO SCH ×2 (08:44→20:27)
[2018-07-11] MEDS: Senna/Docusate Sodium 8.6/50 MG Tablet PO SCH ×2 (08:45→20:29)
[2018-07-11] MEDS: Budesonide-Formoterol 160/4.5 MCG 6 GM Inhaler INH SCH ×2 (08:46→20:29)
[2018-07-11] MEDS: Tiotropium Bromide 18 MCG/ACT Inhaler INH SCH (08:46)
[2018-07-11] MEDS: Insulin NovoLOG Aspart Correctional Sugar Inj SQ SCH ×4 (08:47→21:07)
--- NOTE | 2018-07-11 09:27 | P.PN ---
Subjective Interval history: This is a pleasant 63 y/o Male with Heavy tobacco dependence, Hypertension, DM II, who was admitted with COPD exacerbation. 07/11: Called by Director Of Marketing [employer] the patient meets inpatient management will switch to inpatient. patient seen in his bedroom, no nausea, vomit or diarrhea, status post JAZMIN with Cardioversion, recommended to continue Eliquis 5 mg BID and changed to Cardizem 30 mg every six hours. can be discharged on CT 120 mg daily on discharge. Cardiomyopathy most likely tachycardia induced with need to repeat echo in a few months now that heart rates controlled, Minimally elevated troponin, type 2 due to COPD exacerbation and elevated rates, eventual outpatient stress test, unable to do inpatient due to COPD exacerbation with risk of bronchospasm Physical Exam Vital signs: Vital Signs 07/10/18 10:06 07/10/18 10:15 07/10/18 11:45 Temperature 98.1 F Pulse Rate 74 135 H Respiratory Rate 24 18 Blood Pressure 131/73 Pulse Oximetry 94 L Pulse Oximetry [Exertion on Room Air] 90 L Pulse Oximetry [Resting on Room Air] 93 L 07/10/18 13:09 07/10/18 15:00 07/10/18 16:00 Temperature 98.2 F Pulse Rate 115 H 161 H 137 H Respiratory Rate 20 20 Blood Pressure 131/66 Pulse Oximetry 95 Pulse Oximetry [Exertion on Room Air] Pulse Oximetry [Resting on Room Air] 07/10/18 17:00 07/10/18 18:00 07/10/18 19:00 Temperature Pulse Rate 166 H 149 H 130 H Respiratory Rate 22 Blood Pressure 130/80 Pulse Oximetry 95 Pulse Oximetry [Exertion on Room Air] Pulse Oximetry [Resting on Room Air] 07/10/18 20:00 07/10/18 20:23 07/10/18 21:00 Temperature Pulse Rate 124 H 110 H 136 H Respiratory Rate 35 H Blood Pressure Pulse Oximetry 97 Pulse Oximetry [Exertion on Room Air] Pulse Oximetry [Resting on Room Air] 07/10/18 22:00 07/10/18 23:00 07/11/18 00:00 Temperature Pulse Rate 114 H 104 H 95 H Respiratory Rate 22 Blood Pressure 109/58 L Pulse Oximetry 94 L Pulse Oximetry [Exertion on Room Air] Pulse Oximetry [Resting on Room Air] 07/11/18 03:00 07/11/18 04:00 07/11/18 05:00 Temperature Pulse Rate 99 H 94 H Respiratory Rate Blood Pressure 115/74 Pulse Oximetry Pulse Oximetry [Exertion on Room Air] Pulse Oximetry [Resting on Room Air] 07/11/18 06:00 07/11/18 07:00 07/11/18 07:55 Temperature 97.5 F L Pulse Rate 86 100 H 83 Respiratory Rate 20 16 Blood Pressure 120/80 Pulse Oximetry 96 97 Pulse Oximetry [Exertion on Room Air] Pulse Oximetry [Resting on Room Air] 07/11/18 08:00 Temperature Pulse Rate Respiratory Rate Blood Pressure Pulse Oximetry 95 Pulse Oximetry [Exertion on Room Air] Pulse Oximetry [Resting on Room Air] Intake & Output 07/10/18 07/11/18 07/11/18 18:59 06:59 18:59 Intake Total 1760 / 1760 365 / 365 Output Total 1050 / 1050 Balance 1760 / 1760 -685 / -685 Intake: IV 800 / 800 125 / 125 NS Inj 1,000 ML @ 50 mls/hr IV. 800 / 800 CONT .Q20H SHADI Rx#:[id number] Cardizem Inj 125 MG In NS Inj 125 / 125 100 ML @ 5 MG/HR 5 mls/hr IV. CONT TITRATE PRN Rx#:[id number] Oral 960 / 960 240 / 240 Output: Urine 1050 / 1050 Other: # Voids 3 Date of Last Bowel Movement 07/10/18 07/10/18 07/10/18 Narrative: GENERAL: no acute distress. SKIN: Warm and dry. No rash. HEENT: mucous membranes wet. NECK: Trachea midline. CARDIOVASCULAR: Sinus rhythm, no murmurs. RESPIRATORY: Severe decreased breath sounds bilateral, with expiratory and inspiratory wheezing. GASTROINTESTINAL: Abdomen soft, non-tender, nondistended. +BS. MUSCULOSKELETAL: Extremities without clubbing, cyanosis, or edema. No obvious deformities. NEUROLOGICAL: Awake and alert. No obvious cranial nerve deficits. PSYCHIATRIC: Appropriate mood and affect; insight and judgment normal. Results - Labs CBC & Chem 7: 07/11/18 05:24 07/11/18 05:24 Laboratory Results - last 24 hr 07/10/18 07/10/18 07/10/18 12:47 16:04 16:52 WBC RBC Hgb Hct MCV MCH MCHC RDW Plt Count MPV Sodium Potassium Chloride Carbon Dioxide Anion Gap BUN Creatinine Estimated GFR POC Glucose 409 H 392 H Random Glucose Calcium Total Creatine Kinase 309 H CK-MB (CK-2) 7.0 H CK-MB (CK-2) % 2.3 Troponin I 0.09 H TSH 0.765 07/10/18 07/10/18 07/10/18 16:52 21:25 22:25 WBC RBC Hgb Hct MCV MCH MCHC RDW Plt Count MPV Sodium Potassium Chloride Carbon Dioxide Anion Gap BUN Creatinine Estimated GFR POC Glucose 331 H Random Glucose Calcium Total Creatine Kinase 307 CK-MB (CK-2) CK-MB (CK-2) % Troponin I 0.17 H TSH Cancelled 07/11/18 07/11/18 07/11/18 05:24 05:24 07:47 WBC 25.0 H RBC 4.55 Hgb 14.2 Hct 42.5 MCV 93.6 MCH 31.3 MCHC 33.5 RDW 12.9 Plt Count 288 MPV 9.4 Sodium 139 Potassium 3.8 Chloride 100 Carbon Dioxide 30.6 Anion Gap 8 BUN 29 H Creatinine 1.13 Estimated GFR 66 L POC Glucose 211 H Random Glucose 191 H Calcium 7.9 L Total Creatine Kinase CK-MB (CK-2) CK-MB (CK-2) % Troponin I TSH - Imaging Chest X-Ray 07/08/18 14:06 CONCLUSION: No acute intrathoracic disease. - Procedures JAZMIN with cardioversion. Assessment and Plan - Plan This is a pleasant 63 y/o Male with Heavy tobacco dependence, Hypertension, DM II, who was admitted with COPD exacerbation. 1. New onset of Atrial Fibrillation with RVR CHADsVASc score 2, Received Diltiazem 20 mg IVP by [facility] nurse without improvement, transferred to [facility] started on Eliquis, position classification specialist following doctor Ethan EF 40-45% , recommended to continue Cardizem drip, 07/11: Status post JAZMIN with Cardioversion, recommended to continue Eliquis 5 mg BID and changed to Cardizem 30 mg every six hours. can be discharged on CT 120 mg daily on discharge. Cardiomyopathy most likely tachycardia induced with need to repeat echo in a few months now that heart rates controlled, Minimally elevated troponin, type 2 due to COPD exacerbation and elevated rates, eventual outpatient stress test, unable to do inpatient due to COPD exacerbation with risk of bronchospasm 2. COPD exacerbation CXR with no acute cardiopulmonary process, continue Bronchodilator, Mucolytic and incentive spirometry Levaquin by mouth, IV steroids, tapering to PO steroids, Home Oxygen and walk test patient did not qualify for Home Oxygen 3. ALLY on hold HCTZ and Metformin his Creatinine improved. 4. Hypertension on hold HCTZ, started on Amlodipine 5 mg daily, Cardizem drip 5. DM II Hemoglobin A1C 11.4, uncontrolled resumed his Glipizide and continue Levemir sliding scale, 3 units Aspart TIDAC. 6. electrolyte derangement replacing and following. DVT prophylaxis Eliquis Code Status: Full code. Discussed Condition With: patient and Nurse, also discussed with position classification specialist Doctor Long. Discharge Planning: Once cleared by position classification specialist.
[2018-07-11] MEDS: Insulin Detemir Inj 1,000 UNIT/10 ML Vial SQ SCH ×2 (13:18→21:05)
[2018-07-11] MEDS: dilTIAZem 30 MG Tablet PO SCH ×3 (13:20→20:27)
--- NOTE | 2018-07-11 13:34 | ECG ---
Date Performed: 07/10/2018 Time Performed: 12:28:05 PTAGE: 63 years EKG: ATRIAL FIBRILLATION WITH RAPID VENTRICULAR RESPONSE MODERATE ST DEPRESSION ABNORMAL ECG atr ial fibrillation is new since prior tracing Clinical correlation is recommended PREVIOUS TRACING : 07/08/2018 14.11 DOCTOR: Delfino Martini Interpretating Date/Time 07/11/2018 13:33:13
--- NOTE | 2018-07-11 21:56 | P.PNCA ---
Subjective Interval history: No events overnight Afib overnight, s/p JAZMIN with cardioversion, now sinus rhythm Medications and Allergies Active Medications: Active Medications Al Hydroxide/Mg Hydroxide (Milk Of Magnmony Liq) 30 ml PO Q12H PRN PRN Reason: Mild Constipation Albuterol (Albuterol Neb (Prn)) 2.5 mg NEB Q2HR NEB PRN PRN Reason: SHORTNESS OF BREATH Last Admin: 07/10/18 10:15 Dose: 2.5 mg Apixaban (Eliquis) 5 mg PO BID [facility] Last Admin: 07/11/18 20:27 Dose: 5 mg Aspirin (Aspirin Chew) 81 mg PO DAILY [facility] Last Admin: 07/11/18 08:44 Dose: 81 mg Bisacodyl (Dulcolax Supp) 10 mg RECTAL DAILY PRN PRN Reason: SEVERE CONSITIPATION Budesonide/Formoterol Fumarate (Symbicort 160/4.5 Mcg Inh) 2 puff INH BID [facility] Last Admin: 07/11/18 20:29 Dose: 2 puff Dextrose (D50w Vial) 50 ml IV.PUSH UNSCH PRN PRN Reason: PER HYPOGLYCEMIA PROTOCOL Diltiazem HCl (Cardizem) 30 mg PO QID [facility] Last Admin: 07/11/18 20:27 Dose: 30 mg Glipizide (Glucotrol) 10 mg PO BIDAC [facility] Last Admin: 07/11/18 17:50 Dose: 10 mg Glucagon (Glucagon Inj) 1 mg OTHER PRN PRN PRN Reason: for Hypoglycemia Protocol Guaifenesin (Mucinex Er) 600 mg PO BID [facility] Last Admin: 07/11/18 20:27 Dose: 600 mg Diltiazem HCl 125 mg/ Sodium (Chloride) 125 mls @ 5 mls/hr IV.CONT TITRATE PRN ; Protocol PRN Reason: Per Protocol Last Admin: 07/11/18 02:35 Dose: 5 mg/hr, 5 mls/hr Insulin Aspart (Novolog Insulin Correctional Sugar Inj) 0 unit SQ ACHS [facility]; Protocol Last Admin: 07/11/18 21:07 Dose: 7 unit Insulin Aspart (Novolog Inj) 3 units SQ TIDAC [facility] Last Admin: 07/11/18 17:50 Dose: 3 units Insulin Detemir (Levemir Inj) 10 unit SQ BID [facility] Last Admin: 07/11/18 21:05 Dose: 10 unit Lactulose (Lactulose Liq) 30 ml PO DAILY PRN PRN Reason: SEVERE CONSITIPATION Levalbuterol HCl (Xopenex Neb) 1.25 mg NEB Q6HR WHILE AWAKE NEB [facility] Last Admin: 07/11/18 21:22 Dose: 1.25 mg Levofloxacin (Levaquin) 750 mg PO DAILY [facility] Last Admin: 07/11/18 08:44 Dose: 750 mg Metformin HCl (Glucophage) 500 mg PO BIDPC [facility] Last Admin: 07/09/18 11:41 Dose: 500 mg Ondansetron HCl (Zofran Inj) 4 mg IV.PUSH Q6H PRN PRN Reason: NAUSEA OR VOMITING Pravastatin Sodium (Pravachol) 80 mg PO HS [facility] Last Admin: 07/11/18 20:27 Dose: 80 mg Prednisone (Deltasone) 40 mg PO DAILY [facility] Last Admin: 07/11/18 08:43 Dose: 40 mg Senna/Docusate Sodium (Nikia-Colace) 1 tab PO BID [facility] Last Admin: 07/11/18 20:29 Dose: Not Given Sennosides (Senokot) 17.2 mg PO Q12H PRN PRN Reason: Moderate Constipation Sodium Chloride (Ns Flush) 2 ml IV.FLUSH BID [facility] Last Admin: 07/11/18 20:28 Dose: 2 ml Sodium Chloride (Ns Flush) 2 ml IV.FLUSH PRN PRN PRN Reason: FLUSH AFTER USING IV ACCESS Tiotropium Gibson (Spiriva 18 Mcg Inh) 18 mcg INH DAILY [facility] Last Admin: 07/11/18 08:46 Dose: 18 mcg Allergies Allergy/AdvReac Type Severity Reaction Status Date / Time cephalexin Allergy Severe RASH Verified 07/08/18 14:29 Home Medications Medication Instructions Recorded Confirmed Type etodolac 300 mg PO BID 07/08/18 07/08/18 History glipizide 10 mg PO BID 07/08/18 07/08/18 History hydrochlorothiazide 25 mg PO DAILY 07/08/18 07/08/18 History metformin 500 mg PO BID 07/08/18 07/08/18 History simvastatin [Zocor] 40 mg PO HS 07/08/18 07/08/18 History tramadol 50 mg PO Q4-6H PRN 07/08/18 07/08/18 History Physical Exam Vital signs: Vital Signs 07/10/18 22:00 07/10/18 23:00 07/11/18 00:00 Temperature Pulse Rate 114 H 104 H 95 H Respiratory Rate 22 Blood Pressure 109/58 L Pulse Oximetry 94 L 07/11/18 03:00 07/11/18 04:00 07/11/18 05:00 Temperature Pulse Rate 99 H 94 H Respiratory Rate Blood Pressure 115/74 Pulse Oximetry 07/11/18 06:00 07/11/18 07:00 07/11/18 07:55 Temperature 97.5 F L Pulse Rate 86 99 H 83 Respiratory Rate 20 16 Blood Pressure 120/80 Pulse Oximetry 96 97 07/11/18 08:00 07/11/18 09:00 07/11/18 10:00 Temperature Pulse Rate 92 H 102 H 92 H Respiratory Rate Blood Pressure Pulse Oximetry 95 07/11/18 11:00 07/11/18 12:00 07/11/18 13:00 Temperature 97.8 F Pulse Rate 118 H 77 100 H Respiratory Rate 22 Blood Pressure 127/82 Pulse Oximetry 94 L 07/11/18 13:22 07/11/18 14:00 07/11/18 15:00 Temperature 97.9 F Pulse Rate 93 H 110 H 79 Respiratory Rate 18 22 Blood Pressure 124/79 Pulse Oximetry 94 L 07/11/18 16:00 07/11/18 17:00 07/11/18 18:00 Temperature Pulse Rate 84 88 73 Respiratory Rate Blood Pressure Pulse Oximetry 07/11/18 21:22 07/11/18 21:26 Temperature Pulse Rate 93 H Respiratory Rate 18 Blood Pressure Pulse Oximetry 96 Intake & Output 07/11/18 07/11/18 07/12/18 06:59 18:59 06:59 Intake Total 365 / 365 1160 / 1160 Output Total 1050 / 1050 Balance -685 / -685 1160 / 1160 Intake: IV 125 / 125 Cardizem Inj 125 MG In NS Inj 125 / 125 100 ML @ 5 MG/HR 5 mls/hr IV. CONT TITRATE PRN Rx#:[id number] Oral 240 / 240 1160 / 1160 Output: Urine 1050 / 1050 Other: # Voids 5 Date of Last Bowel Movement 07/10/18 07/11/18 # Bowel Movements 2 Narrative: GENERAL: WDWN male patient, INAD. Awake and alert. Able to have conversation without any noticeable respiratory difficulties. SKIN: Warm and dry. No rash. HEENT: Atraumatic. Normocephalic. Pupils equal and round. No scleral icterus. No injection or drainage. No nasal bleeding or discharge. Mucous membranes pink and moist. NECK: Trachea midline. CARDIOVASCULAR: RRR, +S1/2 RESPIRATORY: No accessory muscle use. Tight air entry with diffuse wheezing noted in all lung adames, improving with improved air entry. GASTROINTESTINAL: Abdomen soft, non-tender, nondistended. +BS. MUSCULOSKELETAL: Extremities without clubbing, cyanosis, or edema. No obvious deformities. NEUROLOGICAL: Awake and alert. No obvious cranial nerve deficits. Motor grossly within normal limits. Able to move all extremities spontaneously. Normal speech. PSYCHIATRIC: Appropriate mood and affect; insight and judgment normal. Results 07/11/18 05:24 07/11/18 05:24 Cardiac Enzymes 07/10/18 07/10/18 Range/Units 16:52 22:25 CK-MB (CK-2) 7.0 H (0.5-3.6) ng/mL Troponin I 0.09 H 0.17 H (0.02-0.05) ng/mL CBC 07/11/18 Range/Units 05:24 WBC 25.0 H (4.0-11.0) th/mm3 RBC 4.55 (4.50-5.90) mil/mm3 Hgb 14.2 (13.0-17.0) gm/dL Hct 42.5 (39.0-51.0) % Plt Count 288 (150-450) th/mm3 Comprehensive Metabolic Panel 07/10/18 07/11/18 Range/Units 07:30 05:24 Sodium 136 139 (136-145) meq/L Potassium 4.0 3.8 (3.5-5.1) meq/L Chloride 99 100 (98-107) meq/L Carbon Dioxide 29.5 30.6 (21.0-32.0) meq/L BUN 25 H 29 H (7-18) mg/dL Creatinine 1.11 1.13 (0.60-1.30) mg/dL Calcium 7.7 L 7.9 L (8.5-10.1) mg/dL Intake and Output 07/11/18 07/11/1807/11/18 06:59 14:59 22:59 Intake Total 365 / 365 1160 / 1160 Output Total 1050 / 1050 Balance -685 / -685 1160 / 1160 Intake: IV 125 / 125 Cardizem Inj 125 MG In NS Inj 125 / 125 100 ML @ 5 MG/HR 5 mls/hr IV. CONT TITRATE PRN Rx#:[id number] Oral 240 / 240 1160 / 1160 Output: Urine 1050 / 1050 Other: # Voids 5 Date of Last Bowel Movement 07/10/18 07/10/18 07/11/18 # Bowel Movements 2 Assessment and Plan - Assessment (1) Afib Code(s): I48.91 - Unspecified atrial fibrillation Status: Acute (2) Elevated troponin Code(s): R74.8 - Abnormal levels of other serum enzymes Status: Acute (3) COPD exacerbation Code(s): J44.1 - Chronic obstructive pulmonary disease with (acute) exacerbation Status: Acute - Plan 1) COPD exacerbation Per primary team 2) Afib with RVR s/p JAZMIN with cardioversion Now in sinus rhythm Con't on Eliquis Changed to Cardizem 30mg q6hrs Can be changed to Cardizem CD 120mg daily on discharge 3) Cardiomyopathy Most likely tachycardia induced Will need repeat echo in a few months now that heart rates controlled 4) Minimally elevated trop Type 2 due to COPD exacerbation and elevated heart rates Eventual outpt stress test, unable to do inpatient due to COPD exacerbation with risk of bronchospasm 5) Tobacco cessation
--- NOTE | 2018-07-11 21:59 | P.PCNCA ---
- Cardiology Procedure Note Procedure: Cardioversion for AFib with RVR Procedure Date: 07/11/18 Procedure Detail: After informed consent, patient was sedated by anesthesia for JAZMIN with cardioversion. During JAZMIN, no cardiac thrombus was noted, please see report for full details. Patient was placed in a prone position with pads anterior and posterior. He was cardioverted to sinus rhythm with one shock at 200J. He tolerated the procedure well.
--- NOTE | 2018-07-11 22:08 | ECHRPT ---
Indication: ATRIAL FIB/FLUTTER CONCLUSIONS The left ventricular systolic function is moderately reduced with an estimated ejection fraction in the range of 40-45%. There is global left ventricular dysfunction. The right ventricular systoilc function is mildly decreased. Normal left atrial appendage size with no evidence of thrombus formation. Trace mitral valve regurgitation. BP: / HR: Rhythm: Atrial fibrillation Technical Quality:Fair Medications Complications Proc. Components Anesthesia at the bedside for sedation FINDINGS LEFT VENTRICLE Normal left ventricular size. The left ventricular systolic function is moderately reduced with an estimated ejection fraction in the range of 40-45%. There is global left ventricular dysfunction. RIGHT VENTRICLE The right ventricular size is normal. The right ventricular systoilc function is mildly decreased. LEFT ATRIUM The left atrial size is normal. RIGHT ATRIUM The right atrial size is normal. ATRIAL APPENDAGES Normal left atrial appendage size with no evidence of thrombus formation. ATRIAL SEPTUM Normal atrial septal thickness without atrial level shunting by limited color doppler interrogation. AORTA The aortic root and proximal ascending aorta are normal in size on limited imaging. MITRAL VALVE Structurally normal mitral valve. Trace mitral valve regurgitation. No mitral valve stenosis. AORTIC VALVE Trileaflet aortic valve. No aortic valve stenosis or regurgitation. TRICUSPID VALVE Structurally normal tricuspid valve. No tricuspid valve stenosis or regurgitation. Quentin Long DO (Electronically Signed) Final Date:11 July 2018 22:06
[2018-07-12] MEDS: RESP: Levalbuterol 1.25 MG/3 ML Neb (SCH) NEB ×3 (08:17→13:39)
[2018-07-12] MEDS: Insulin NovoLOG Aspart Correctional Sugar Inj SQ SCH ×2 (09:25→11:48)
[2018-07-12] MEDS: Insulin Detemir Inj 1,000 UNIT/10 ML Vial SQ SCH (09:26)
[2018-07-12] MEDS: guaiFENesin 600 MG ER Tablet PO SCH (09:27)
[2018-07-12] MEDS: dilTIAZem 30 MG Tablet PO SCH ×2 (09:27→13:27)
[2018-07-12] MEDS: predniSONE 20 MG Tablet PO SCH (09:27)
[2018-07-12] MEDS: levoFLOXacin 750 MG Tablet PO SCH (09:27)
[2018-07-12] MEDS: Tiotropium Bromide 18 MCG/ACT Inhaler INH SCH (09:28)
[2018-07-12] MEDS: Budesonide-Formoterol 160/4.5 MCG 6 GM Inhaler INH SCH (09:28)
[2018-07-12] MEDS: Senna/Docusate Sodium 8.6/50 MG Tablet PO SCH (09:28)
[2018-07-12] MEDS: glipiZIDE 10 MG Tablet PO SCH (09:38)
[2018-07-12 11:46] VITALS: BP 128/81; TEMP 98.3; O2SAT 94
[2018-07-12 13:41] VITALS: RESP 20
--- NOTE | 2018-07-12 14:24 | P.DS ---
Date of admission: 07/11/18 12:02 Primary care physician: Physician [facility] Attending physician on discharge: Ryan Garza Anticipated date of discharge: 07/12/18 Brief History from admission: This patient is a 63-year-old male with a diagnosis of hypertension, dyspareunia , diabetes mellitus type 2. The patient has an extensive tobacco smoking history, he states he smokes approximately 2 packs/day over the past 40 years. He stopped smoking 3 weeks ago because of his shortness of breath. He came into the emergency department today with complaints of shortness of breath worse on exertion. He has a mild nonproductive cough. No fevers or chills. He denies any chest pain, no abdominal pain, no diarrhea. He uses an albuterol inhaler at home and was not getting any relief with inhaler. Past medical history significant for hypertension, dyspnea, diabetes mellitus type 2 Past surgical history none Social history he smokes 2 packs of cigarettes per day over the past 40 years. Over the past couple of years he has been smoking less a proximally 1 pack/day. He also has a history of marijuana use and denies any recent history of drug use. He says in his 20s he occasionally used speed. Family history significant for diabetes. DS: Diagnosis - Discharge Diagnosis (1) Afib Status: Acute (2) COPD exacerbation Status: Acute DS: Medications - Discharge Medications Prescriptions: albuterol sulfate 2.5 mg NEB Q2HR NEB PRN 30 Days #1 box PRN Reason: Shortness Of Breath albuterol sulfate 2 puff INHALATION Q2H PRN 30 Days #1 inhaler PRN Reason: Shortness Of Breath Or Wheezing amlodipine [Norvasc] 5 mg PO DAILY #30 tab budesonide-formoterol [Symbicort] 2 puff INH BID 30 Days #1 inhaler guaifenesin [Mucinex] 600 mg PO BID 7 Days #14 tab insulin detemir U-100 [Levemir U-100 Insulin] 10 unit SUBCUT BID 30 Days #6 ml prednisone 10 mg PO DAILY #32 tab tiotropium bromide [Spiriva with HandiHaler] 18 mcg INH DAILY 30 Days #1 inh DS: Summary Hospital Course: This is a pleasant 63 y/o Male with Heavy tobacco dependence, Hypertension, DM II, who was admitted with COPD exacerbation. 07/11: Called by Teacher Hearing Impaired the patient meets inpatient management will switch to inpatient. patient seen in his bedroom, no nausea, vomit or diarrhea, status post JAZMIN with Cardioversion, recommended to continue Eliquis 5 mg BID and changed to Cardizem 30 mg every six hours. can be discharged on CT 120 mg daily on discharge. Cardiomyopathy most likely tachycardia induced with need to repeat echo in a few months now that heart rates controlled, Minimally elevated troponin, type 2 due to COPD exacerbation and elevated rates, eventual outpatient stress test, unable to do inpatient due to COPD exacerbation with risk of bronchospasm 07/12: Seen in his bedroom, stable on sinus rhythm, recommended by allergy and immunology specialist for discharge on Eliquis 5 mg BID and Diltiazem CD 120 mg daily. no nausea, vomit or diarrhea. Results - Labs CBC & Chem 7: 07/11/18 05:24 07/11/18 05:24 Laboratory Results - last 24 hr 07/11/18 07/11/18 07/12/18 17:00 21:02 07:45 POC Glucose 312 H 264 H 87 07/12/18 07/12/18 11:47 13:57 POC Glucose 142 H 302 H Assessment and Plan - Plan This is a pleasant 63 y/o Male with Heavy tobacco dependence, Hypertension, DM II, who was admitted with COPD exacerbation. 1. New onset of Atrial Fibrillation with RVR CHADsVASc score 2, Received Diltiazem 20 mg IVP by [facility] nurse without improvement, transferred to [facility] started on Eliquis, allergy and immunology specialist following doctor Ethan EF 40-45% , recommended to continue Cardizem drip, 07/11: Status post JAZMIN with Cardioversion, recommended to continue Eliquis 5 mg BID and changed to Cardizem 30 mg every six hours. can be discharged on CT 120 mg daily on discharge. Cardiomyopathy most likely tachycardia induced with need to repeat echo in a few months now that heart rates controlled, Minimally elevated troponin, type 2 due to COPD exacerbation and elevated rates, eventual outpatient stress test, unable to do inpatient due to COPD exacerbation with risk of bronchospasm, recommended for discharge by allergy and immunology specialist. 2. COPD exacerbation CXR with no acute cardiopulmonary process, continue Bronchodilator, Mucolytic and incentive spirometry Levaquin by mouth, IV steroids, tapering to PO steroids, Home Oxygen and walk test patient did not qualify for Home Oxygen 3. ALLY on hold HCTZ and Metformin his Creatinine improved. 4. Hypertension on hold HCTZ, started on Amlodipine 5 mg daily, Cardizem drip 5. DM II Hemoglobin A1C 11.4, uncontrolled resumed his Glipizide and continue Levemir sliding scale, 3 units Aspart TIDAC. 6. electrolyte derangement replacing and following. DVT prophylaxis Eliquis Code Status: Full code. Discussed Condition With: patient and Nurse Miss Portillo. Discharge Planning: Discharge home now. - Time Spent with Patient Total time spent providing and/or coordinating discharge services: Less than 30 minutes - Quality: VTE Deep Vein Thrombosis/Pulmonary Embolism Present on Admission: No Exam Vital signs: Vital Signs 07/11/18 15:00 07/11/18 16:00 07/11/18 17:00 Temperature 97.9 F Pulse Rate 79 84 88 Respiratory Rate 22 Blood Pressure 124/79 Pulse Oximetry 94 L 07/11/18 18:00 07/11/18 19:00 07/11/18 20:00 Temperature 98.2 F Pulse Rate 73 98 H 73 Respiratory Rate 20 Blood Pressure 125/80 Pulse Oximetry 94 L 07/11/18 21:00 07/11/18 21:22 07/11/18 21:26 Temperature Pulse Rate 73 93 H Respiratory Rate 18 Blood Pressure Pulse Oximetry 96 07/11/18 22:00 07/11/18 23:00 07/12/18 00:00 Temperature 98.2 F Pulse Rate 72 90 73 Respiratory Rate 20 Blood Pressure 139/76 Pulse Oximetry 93 L 07/12/18 01:00 07/12/18 02:00 07/12/18 03:00 Temperature Pulse Rate 73 64 68 Respiratory Rate 16 Blood Pressure Pulse Oximetry 07/12/18 04:00 07/12/18 05:00 07/12/18 06:00 Temperature 98.3 F Pulse Rate 68 68 64 Respiratory Rate 18 Blood Pressure 112/67 Pulse Oximetry 96 07/12/18 07:00 07/12/18 08:00 07/12/18 08:18 Temperature 97.7 F Pulse Rate 75 68 89 Respiratory Rate 22 20 Blood Pressure 129/90 Pulse Oximetry 95 97 07/12/18 09:00 07/12/18 10:00 07/12/18 11:00 Temperature 98.3 F Pulse Rate 116 H 102 H 96 H Respiratory Rate 18 Blood Pressure 128/81 Pulse Oximetry 94 L 07/12/18 12:00 07/12/18 13:00 07/12/18 13:40 Temperature Pulse Rate 96 H 89 63 Respiratory Rate 20 Blood Pressure Pulse Oximetry Intake & Output 07/11/18 07/12/18 07/12/18 18:59 06:59 18:59 Intake Total 1160 / 1160 520 / 520 Output Total 2024 Balance 1160 / 1160 -1505 / -1505 Weight 95.3 kg Intake: IV 40 / 40 Cardizem Inj 125 MG In NS Inj 40 / 40 100 ML @ 5 MG/HR 5 mls/hr IV. CONT TITRATE PRN Rx#:[id number] Oral 1160 / 1160 480 / 480 Output: Urine 2024 Other: # Voids 5 Date of Last Bowel Movement 07/11/18 07/11/18 07/11/18 # Bowel Movements 2 Narrative: GENERAL: no acute distress. SKIN: Warm and dry. No rash. HEENT: mucous membranes wet. NECK: Trachea midline. CARDIOVASCULAR: Sinus rhythm, no murmurs. RESPIRATORY: Severe decreased breath sounds bilateral, with expiratory and inspiratory wheezing. GASTROINTESTINAL: Abdomen soft, non-tender, nondistended. +BS. MUSCULOSKELETAL: Extremities without clubbing, cyanosis, or edema. No obvious deformities. NEUROLOGICAL: Awake and alert. No obvious cranial nerve deficits. PSYCHIATRIC: Appropriate mood and affect; insight and judgment normal. Results Procedures completed during hospitalization: JAZMIN with cardioversion. Labs on day of discharge: Labs from last 24 hours 07/12/18 07/12/18 07/12/18 13:57 11:47 07:45 POC Glucose 302 H 142 H 87 07/11/18 07/11/18 21:02 17:00 POC Glucose 264 H 312 H - Impressions ITS Impressions Chest X-Ray 07/08/18 14:06 CONCLUSION: No acute intrathoracic disease. Discharge Plan - Discharge Disposition Patient Disposition: 01 Discharge Home - Discharge Condition Condition: Stable - Discharge Order Discharge Orders: Discharge Order (Routine); Ordered 07/12/18 Ordered By: Ryan Garza - Discharge Details Anticipated Discharge Date: 07/12/18 Discharge Comment: follow up with Primary care Physician at [facility]. - Physicians Team Primary Care Provider: [facility],Physician 's Attending Provider: Ryan Garza Other Providers: Quentin Long, DO
--- NOTE | 2018-07-12 14:55 | P.DIET ---
Nutritional Evaluation Type of nutrition evaluation: initial Nutrition screening: [facility] Screening comments: 07/10/18 [facility] Diet Education Subjective Subjective Comments: Pt finishing his breathing treatment when visited. Pt provided w/Nutrition Education for Consistent CHO diet and reading food labels. Pt [facility]. Objective - Diagnosis COPD Exacerbation - Objective Dietitian Reviewed in Medical Record: Current diet, Curent medications, Intake & Output, Labs, Medical history Diet Order: Objective Comments: PMH: Back Pain, CPD, DM, HTN A1C 11.4; POC GLucose 142, 302 Meds Include: Novolog SSI, Levemir, Metformin, Pravachol Assessment Assessment: Pt provided w/Nutrition Education for Consistent CHO diet and reading food labels. Pt receptive to all information provided and says he is planning to attend [facility]. RD contact info provided for additional questions as needed. Recommendations: 1. Pt provided w/Nutrition Education for Consistent CHO diet and reading food labels 2. Pt receptive to all information provided and says he is planning to attend [facility] the [facility] 3. RD contact info provided for additional questions as needed
[2018-07-12 15:19] VITALS: PULSE 94
--- NOTE | 2018-07-12 19:08 | P.PNCA ---
Subjective Interval history: No events overnight Telemetry with sinus rhythm Medications and Allergies Allergies Allergy/AdvReac Type Severity Reaction Status Date / Time cephalexin Allergy Severe RASH Verified 07/08/18 14:29 Home Medications Medication Instructions Recorded Confirmed Type glipizide 10 mg PO BID 07/08/18 07/08/18 History metformin 500 mg PO BID 07/08/18 07/08/18 History simvastatin [Zocor] 40 mg PO HS 07/08/18 07/08/18 History tramadol 50 mg PO Q4-6H PRN 07/08/18 07/08/18 History Physical Exam Vital signs: Vital Signs 07/11/18 20:00 07/11/18 21:00 07/11/18 21:22 Temperature Pulse Rate 73 73 93 H Respiratory Rate 18 Blood Pressure Pulse Oximetry 07/11/18 21:26 07/11/18 22:00 07/11/18 23:00 Temperature 98.2 F Pulse Rate 72 90 Respiratory Rate 20 Blood Pressure 139/76 Pulse Oximetry 96 93 L 07/12/18 00:00 07/12/18 01:00 07/12/18 02:00 Temperature Pulse Rate 73 73 64 Respiratory Rate Blood Pressure Pulse Oximetry 07/12/18 03:00 07/12/18 04:00 07/12/18 05:00 Temperature 98.3 F Pulse Rate 68 68 68 Respiratory Rate 16 18 Blood Pressure 112/67 Pulse Oximetry 96 07/12/18 06:00 07/12/18 07:00 07/12/18 08:00 Temperature 97.7 F Pulse Rate 64 75 68 Respiratory Rate 22 Blood Pressure 129/90 Pulse Oximetry 95 07/12/18 08:18 07/12/18 09:00 07/12/18 10:00 Temperature Pulse Rate 89 116 H 102 H Respiratory Rate 20 Blood Pressure Pulse Oximetry 97 07/12/18 11:00 07/12/18 12:00 07/12/18 13:00 Temperature 98.3 F Pulse Rate 81 96 H 89 Respiratory Rate 18 Blood Pressure 128/81 Pulse Oximetry 94 L 07/12/18 13:40 07/12/18 14:00 07/12/18 15:00 Temperature Pulse Rate 63 102 H 94 H Respiratory Rate 20 Blood Pressure Pulse Oximetry Intake & Output 07/12/18 07/12/18 07/13/18 06:59 18:59 06:59 Intake Total 520 / 520 Output Total 2024 Balance -1505 / -1505 Weight 95.3 kg Intake: IV 40 / 40 Cardizem Inj 125 MG In NS Inj 40 / 40 100 ML @ 5 MG/HR 5 mls/hr IV. CONT TITRATE PRN Rx#:[id number] Oral 480 / 480 Output: Urine 2024 Other: Date of Last Bowel Movement 07/11/18 07/11/18 Narrative: GENERAL: no acute distress. SKIN: Warm and dry. No rash. HEENT: mucous membranes wet. NECK: Trachea midline. CARDIOVASCULAR: Sinus rhythm, no murmurs. RESPIRATORY: Moving air better bilaterally, still with expiratory and inspiratory wheezing. GASTROINTESTINAL: Abdomen soft, non-tender, nondistended. +BS. MUSCULOSKELETAL: Extremities without clubbing, cyanosis, or edema. No obvious deformities. NEUROLOGICAL: Awake and alert. No obvious cranial nerve deficits. PSYCHIATRIC: Appropriate mood and affect; insight and judgment normal. Results 07/11/18 05:24 07/11/18 05:24 Cardiac Enzymes 07/10/18 Range/Units 22:25 Troponin I 0.17 H (0.02-0.05) ng/mL CBC 07/11/18 Range/Units 05:24 WBC 25.0 H (4.0-11.0) th/mm3 RBC 4.55 (4.50-5.90) mil/mm3 Hgb 14.2 (13.0-17.0) gm/dL Hct 42.5 (39.0-51.0) % Plt Count 288 (150-450) th/mm3 Comprehensive Metabolic Panel 07/11/18 Range/Units 05:24 Sodium 139 (136-145) meq/L Potassium 3.8 (3.5-5.1) meq/L Chloride 100 (98-107) meq/L Carbon Dioxide 30.6 (21.0-32.0) meq/L BUN 29 H (7-18) mg/dL Creatinine 1.13 (0.60-1.30) mg/dL Calcium 7.9 L (8.5-10.1) mg/dL Intake and Output 07/12/18 07/12/18 07/12/18 06:59 14:59 22:59 Intake Total 480 / 480 Output Total 2024 Balance -1545 / -1545 Intake: Oral 480 / 480 Output: Urine 2024 Other: Date of Last Bowel Movement 07/11/18 07/11/18 Weight 95.3 kg Assessment and Plan - Assessment (1) Afib Code(s): I48.91 - Unspecified atrial fibrillation Status: Acute (2) Elevated troponin Code(s): R74.8 - Abnormal levels of other serum enzymes Status: Acute (3) COPD exacerbation Code(s): J44.1 - Chronic obstructive pulmonary disease with (acute) exacerbation Status: Acute - Plan 1) COPD exacerbation Per primary team 2) Afib with RVR s/p JAZMIN with cardioversion Now in sinus rhythm Con't on Eliquis Changed to Cardizem 30mg q6hrs Can be changed to Cardizem CD 120mg daily on discharge 3) Cardiomyopathy Most likely tachycardia induced Will need repeat echo in a few months now that heart rates controlled 4) Minimally elevated trop Type 2 due to COPD exacerbation and elevated heart rates Eventual outpt stress test, unable to do inpatient due to COPD exacerbation with risk of bronchospasm [facility] 5) Tobacco cessation 6) Cardiovascularly stable for discharge Follow up with the [facility] or myself
--- NOTE | 2018-07-15 17:31 | ECG ---
Date Performed: 07/11/2018 Time Performed: 11:50:52 PTAGE: 63 years EKG: Sinus rhythm . When compared to previous tracing, sinus rhythm has replaceed Atrial fibrillation with rapid ventri cular response. Borderline ECG PREVIOUS TRACING : 07/10/2018 12.28 DOCTOR: Romaine Ochoa Interpretating Date/Time 07/15/2018 17:30:16
--- NOTE | 2018-07-15 18:02 | ECG ---
Date Performed: 07/11/2018 Time Performed: 14:21:32 PTAGE: 63 years EKG: Sinus tachycardia Normal ECG except for rate PREVIOUS TRACING : 07/11/2018 11.50 Since the previous tracing, no significant change not ed DOCTOR: Romaine Ochoa Interpretating Date/Time 07/15/2018 18:01:24
== END 2018-07-12 15:22 | disposition home or self-care (01) ==
LOC: NEPE 13:28 → NEDA 13:28 → NEPGCP 18:50 → HCIS 07-10 14:30
PROVIDERS: ADMIT Internal Medicine; ATTEND Internal Medicine

== ENCOUNTER 2018-08-18 10:12 | Observation (INO) ==
[2018-08-18] MEDS ORDERED: MethylPREDNISolone Sod Succinate Inj 125 MG/2 ML Vial IV.PUSH ONE (10:30)
--- NOTE | 2018-08-18 10:39 | ED ---
HPI General Chief Complaint: Chest Pain Stated Complaint: Diff breathing, chest pains Time Seen by Provider: 08/18/18 10:25 Source: patient Mode of arrival: ambulatory Limitations: no limitations History of Present Illness HPI narrative: 63 y/o male states he started getting short of breath. He states it has gotten significantly worse and he can only walk a little bit before he gets very short of breath and that is why he came in today. He states he has tried his breathing treatments at home and they do not help. He states he has no other concurrent complaints but is a very poor historian to the point that he forgot to tell me he is a diabetic until we reviewed his medication list. STEMI Alert: No Onset (ago): day(s) Duration: constant Onset: during rest Pain radiation: Reports none Relieving factors: nothing Exacerbating factors: movement Related Data Home Medications Medication Instructions Recorded Confirmed albuterol sulfate 2.5 mg INHALATION Q4-6H PRN 08/18/18 08/18/18 apixaban [Eliquis] 5 mg PO BID 08/18/18 08/18/18 aspirin [Aspir-81] 81 mg PO DAILY 08/18/18 08/18/18 budesonide-formoterol 2 puff INHALATION Q12H 08/18/18 08/18/18 diltiazem HCl [DILT-XR] 120 mg PO DAILY 08/18/18 08/18/18 glipizide 10 mg PO BID 08/18/18 08/18/18 guaifenesin 400 mg PO BID PRN 08/18/18 08/18/18 insulin glargine 10 unit SUBCUT BID 08/18/18 08/18/18 levofloxacin 750 mg PO DAILY 08/18/18 08/18/18 simvastatin 40 mg PO QPM 08/18/18 08/18/18 tiotropium bromide 1 cap INHALATION DAILY 08/18/18 08/18/18 Allergies Allergy/AdvReac Type Severity Reaction Status Date / Time cephalexin Allergy Severe RASH Verified 08/18/18 10:27 lisinopril Allergy Anaphylaxis Verified 08/18/18 10:28 Review of Systems ROS: all other systems reviewed are negative [facility] Medical History Medical History Back pain (Acute) COPD (chronic obstructive pulmonary disease) (Acute) Diabetes (Acute) HTN (hypertension) (Acute) Surgical History Surgical History No history of previous surgery (Acute) Social History Social History Substance History: No History of Abuse Second Hand Smoke Exposure: Yes Smoking Status: Former smoker Tobacco Type: Cigarettes How Often Do You Have a Drink Containing Alcohol: Monthly or less Recent Travel in [facility] within the Last 8 Weeks: No Recent Out of Country Travel within the Last 8 Weeks: No Exam Narrative Exam Narrative: GENERAL: 63 y/o male who appears short of breath SKIN: Focused skin assessment warm/dry. HEAD: Atraumatic. Normocephalic. EYES: Pupils equal and round. No scleral icterus. No injection or drainage. ENT: No nasal bleeding or discharge. Mucous membranes pink and moist. NECK: Trachea midline. CARDIOVASCULAR: Tachycardic rate and regular rhythm RESPIRATORY: Tachypnea noted, decreased breath sounds with expiratory wheezing bilaterally GASTROINTESTINAL: Abdomen soft, non-tender, nondistended. MUSCULOSKELETAL: No obvious deformities. No clubbing. No cyanosis. NEUROLOGICAL: Awake and alert. Motor grossly within normal limits. Normal speech. PSYCHIATRIC: Appropriate mood and affect; insight and judgment normal. Course Reevaluation(s) Reevaluation #1: On recheck patient is still wheezing after 3 nebs. He says he is feeling better. He still has sinus tachycardia in the 120s. His ABG is stable on 2 L but he does not wear oxygen at home. He will need to be admitted for further care of this acute COPD exacerbation Consultations Consultation #1: dr miller agrees to admit Initial Documented Vital Signs Temperature 98.4 F 08/18/18 10:15 Pulse Rate 130 H 08/18/18 10:15 Respiratory Rate 28 H 08/18/18 10:15 Blood Pressure 173/96 H 08/18/18 10:15 Pulse Oximetry 94 L 08/18/18 10:15 Last Documented Vital Signs Temperature 98.4 F 08/18/18 10:15 Pulse Rate 123 H 08/18/18 12:45 Respiratory Rate 18 08/18/18 12:45 Blood Pressure 140/84 08/18/18 11:00 Pulse Oximetry 97 08/18/18 11:48 Medical Decision Making MDM Narrative Medical decision making narrative: will check labs, cxr, ekg and dose with duoneb and solumedrol and reevaluate Medical Screen Exam Complete: Yes Emergency Medical Condition: Yes Differential Diagnosis Differential Diagnosis: anemia, renal failure, copd, chf, pneumonia, pneumothorax Lab Data Lab results reviewed: Yes I reviewed the patient's lab results. Result diagrams: 08/18/18 10:40 08/18/18 10:40 Lab Results 08/18/18 08/18/18 08/18/18 Range/Units 10:40 10:40 10:40 WBC 15.1 H (4.0-11.0) th/mm3 RBC 5.03 (4.50-5.90) mil/mm3 Hgb 16.2 (13.0-17.0) gm/dL Hct 48.2 (39.0-51.0) % MCV 95.9 (80.0-100.0) fL MCH 32.2 (27.0-34.0) pg MCHC 33.6 (32.0-36.0) % RDW 13.9 (11.6-17.2) % Plt Count 285 (150-450) th/mm3 MPV 8.8 (7.0-11.0) fL Neut % (Auto) 82.8 H (16.0-70.0) % Lymph % (Auto) 5.3 L (9.0-44.0) % [place] % (Auto) 10.9 H (0.0-8.0) % Eos % (Auto) 0.3 (0.0-4.0) % Baso % (Auto) 0.7 (0.0-2.0) % Neut # (Auto) 12.5 H (1.8-7.7) th/mm3 Lymph # (Auto) 0.8 L (1.0-4.8) th/mm3 [place] # (Auto) 1.6 H (0.0-0.9) th/mm3 Eos # (Auto) 0.0 (0.0-0.4) th/mm3 Baso # (Auto) 0.1 (0.0-0.2) th/mm3 WBC Differential . Differential Comment Auto diff final PT 10.6 (9.8-11.6) sec INR 1.0 Ratio APTT 30.9 (23.4-31.7) sec Puncture Site Patient Temperature O2 Saturation (90-100) % ABG pH (7.380-7.420) ABG pCO2 (38-42) mmHg ABG pO2 (61-120) mmHg ABG HCO3 (22-26) mmol/L ABG O2 Content (12.0-20.0) Vol % ABG Base Excess (-2-2) mmol/L ABG Methemoglobin (0-2) % Sudeep Test Hemoglobin (12.0-16.0) G/DL Carboxyhemoglobin (0-4) % O2 Delivery Device Liter Flow L/M Critical Value Sodium 130 L (136-145) meq/L Potassium 5.4 H (3.5-5.1) meq/L Chloride 96 L (98-107) meq/L Carbon Dioxide 27.1 (21.0-32.0) meq/L Anion Gap 7 (5-15) meq/L BUN 11 (7-18) mg/dL Creatinine 1.25 (0.60-1.30) mg/dL Estimated GFR 59 L (>89) mL/min Random Glucose 322 H (74-106) mg/dL Calcium 8.4 L (8.5-10.1) mg/dL Magnesium 1.6 (1.5-2.5) mg/dL Total Bilirubin 0.7 (0.2-1.0) mg/dL AST 38 H (15-37) U/L ALT 27 (12-78) U/L Alkaline Phosphatase 74 (45-117) U/L Total Creatine Kinase 184 (39-308) U/L CK-MB (CK-2) 3.3 (0.5-3.6) ng/mL Troponin I Less than 0.02 L (0.02-0.05) ng/mL B-Natriuretic Peptide (0-100) pg/mL Total Protein 8.7 H (6.4-8.2) g/dL Albumin 3.9 (3.4-5.0) g/dL 08/18/18 08/18/18 Range/Units 10:40 12:20 WBC (4.0-11.0) th/mm3 RBC (4.50-5.90) mil/mm3 Hgb (13.0-17.0) gm/dL Hct (39.0-51.0) % MCV (80.0-100.0) fL MCH (27.0-34.0) pg MCHC (32.0-36.0) % RDW (11.6-17.2) % Plt Count (150-450) th/mm3 MPV (7.0-11.0) fL Neut % (Auto) (16.0-70.0) % Lymph % (Auto) (9.0-44.0) % [place] % (Auto) (0.0-8.0) % Eos % (Auto) (0.0-4.0) % Baso % (Auto) (0.0-2.0) % Neut # (Auto) (1.8-7.7) th/mm3 Lymph # (Auto) (1.0-4.8) th/mm3 [place] # (Auto) (0.0-0.9) th/mm3 Eos # (Auto) (0.0-0.4) th/mm3 Baso # (Auto) (0.0-0.2) th/mm3 WBC Differential Differential Comment PT (9.8-11.6) sec INR Ratio APTT (23.4-31.7) sec Puncture Site Left radial Patient Temperature 98.6 O2 Saturation 91 (90-100) % ABG pH 7.39 (7.380-7.420) ABG pCO2 42 (38-42) mmHg ABG pO2 68 (61-120) mmHg ABG HCO3 25 (22-26) mmol/L ABG O2 Content 18.9 (12.0-20.0) Vol % ABG Base Excess 0.4 (-2-2) mmol/L ABG Methemoglobin 0.7 (0-2) % Sudeep Test Present Hemoglobin 14.8 (12.0-16.0) G/DL Carboxyhemoglobin 1.9 (0-4) % O2 Delivery Device Nasal cannula Liter Flow 2.00 L/M Critical Value No Sodium (136-145) meq/L Potassium (3.5-5.1) meq/L Chloride (98-107) meq/L Carbon Dioxide (21.0-32.0) meq/L Anion Gap (5-15) meq/L BUN (7-18) mg/dL Creatinine (0.60-1.30) mg/dL Estimated GFR (>89) mL/min Random Glucose (74-106) mg/dL Calcium (8.5-10.1) mg/dL Magnesium (1.5-2.5) mg/dL Total Bilirubin (0.2-1.0) mg/dL AST (15-37) U/L ALT (12-78) U/L Alkaline Phosphatase (45-117) U/L Total Creatine Kinase (39-308) U/L CK-MB (CK-2) (0.5-3.6) ng/mL Troponin I (0.02-0.05) ng/mL B-Natriuretic Peptide 19 (0-100) pg/mL Total Protein (6.4-8.2) g/dL Albumin (3.4-5.0) g/dL Imaging Data Attestation: I personally reviewed and interpreted this imaging study as follows : Radiologist's impression: Chest X-Ray 08/18/18 10:25 CONCLUSION: No acute intrathoracic disease. Stable exam. Discharge Plan Discharge Disposition Patient Disposition: 30 Still Patient Discharge Details Diagnosis: COPD exacerbation Physicians Team ED Provider: Nancy Mcallister Primary Care Provider: [facility] /Orders / Referrals /Forms Prescriptions: No Action insulin glargine 100 unit/mL Solution 10 unit SUBCUT BID RF: 0 albuterol sulfate 2.5 mg /3 mL (0.083 %) Solution For Nebulization 2.5 mg INHALATION Q4-6H PRN (Reason: Shortness Of Breath) RF: 0 glipizide 10 mg Tablet 10 mg PO BID RF: 0 aspirin [Aspir-81] 81 mg Tablet,Delayed Release (Dr/Ec) 81 mg PO DAILY RF: 0 diltiazem HCl [DILT-XR] 120 mg Capsule,Ext.Rel 24h Degradable 120 mg PO DAILY RF: 0 guaifenesin 400 mg Tablet 400 mg PO BID PRN (Reason: TO THIN MUCOUS) RF: 0 budesonide-formoterol 160-4.5 mcg/actuation Hfa Aerosol Inhaler 2 puff INHALATION Q12H RF: 0 simvastatin 40 mg Tablet 40 mg PO QPM RF: 0 levofloxacin 750 mg Tablet 750 mg PO DAILY RF: 0 tiotropium bromide 18 mcg Capsule, W/Inhalation Device 1 cap INHALATION DAILY RF: 0 apixaban [Eliquis] 5 mg Tablet 5 mg PO BID RF: 0 Discharge Instructions Patient Printed Instructions: Chest Pain (ED) Status ED Status: Admitted Patient
--- NOTE | 2018-08-18 10:43 | XR ---
EXAM DATE: 08/18/2018 10:41 AM EST AGE/SEX: 63 years / Male INDICATIONS: Chest pain CLINICAL DATA: This is the patient's initial encounter. Patient reports that signs and symptoms have been present for 1 day and indicates a pain score of 3/10. MEDICAL/SURGICAL HISTORY: Diabetes mellitus type II. None. COMPARISON: [facility] [place], CHEST 1V SINGLE AP, 07/08/2018. . FINDINGS: A single AP view of the chest demonstrates the lungs to be symmetrically aerated without evidence of mass, infiltrate or effusion. The cardiomediastinal contours are unremarkable. Osseous structures a re intact. CONCLUSION: No acute intrathoracic disease. Stable exam. Electronically signed by: Chucky Olivares MD 08/18/2018 10:42 AM EST
[2018-08-18 11:00] LABS: Baso # (Auto) 0.1 th/mm3 (0.0-0.2); Baso % (Auto) 0.7 % (0.0-2.0); Eos % (Auto) 0.3 % (0.0-4.0); Hematocrit 48.2 % (39.0-51.0); Hemoglobin 16.2 gm/dL (13.0-17.0); Lymph # (Auto) 0.8 th/mm3 (1.0-4.8); Lymph % (Auto) 5.3 % (9.0-44.0); Mean Corpuscular HGB Conc 33.6 % (32.0-36.0); Mean Corpuscular Hemoglobin 32.2 pg (27.0-34.0); Mean Corpuscular Volume 95.9 fL (80.0-100.0); Mean Platelet Volume 8.8 fL (7.0-11.0); Mono # (Auto) 1.6 th/mm3 (0.0-0.9); Mono % (Auto) 10.9 % (0.0-8.0); Neut # (Auto) 12.5 th/mm3 (1.8-7.7); Neut % (Auto) 82.8 % (16.0-70.0); Platelet Count 285 th/mm3 (150-450); Red Blood Count 5.03 mil/mm3 (4.50-5.90); Red Cell Distribution Width 13.9 % (11.6-17.2); White Blood Count 15.1 th/mm3 (4.0-11.0)
[2018-08-18 11:15] LABS: Activated Partial Thrombo Time 30.9 sec (23.4-31.7); Prothrombin Time 10.6 sec (9.8-11.6)
[2018-08-18 11:55] LABS: Alanine Aminotransferase 27 U/L (12-78); Albumin 3.9 g/dL (3.4-5.0); Alkaline Phosphatase 74 U/L (45-117); Anion Gap 7 meq/L (5-15); Aspartate Aminotransferase 38 U/L (15-37); Blood Urea Nitrogen 11 mg/dL (7-18); Calcium 8.4 mg/dL (8.5-10.1); Carbon Dioxide 27.1 meq/L (21.0-32.0); Chloride 96 meq/L (98-107); Creatine Kinase 184 U/L (39-308); Glomerular Filtration Rate 59 mL/min (>89); Glucose,Random 322 mg/dL (74-106); Magnesium 1.6 mg/dL (1.5-2.5); Sodium 130 meq/L (136-145); Total Protein 8.7 g/dL (6.4-8.2)
[2018-08-18 12:10] LABS: Potassium 5.4 meq/L (3.5-5.1)
[2018-08-18 12:23] LABS: Creatine Kinase MB 3.3 ng/mL (0.5-3.6)
[2018-08-18 12:29] LABS: ABG Base Excess 0.4 mmol/L (-2-2); ABG PCO2 42 mmHg (38-42); ABG PO2 68 mmHg (61-120)
[2018-08-18] MEDS ORDERED: Dextrose 50% in Water 50 ML Vial IV.PUSH PRN (12:47)
[2018-08-18] MEDS ORDERED: Bisacodyl 10 MG Supp RECTAL PRN (12:47)
[2018-08-18] MEDS ORDERED: Acetaminophen 325 MG Tablet PO PRN (12:47)
--- NOTE | 2018-08-18 12:52 | ECG ---
Date Performed: 08/18/2018 Time Performed: 10:30:18 PTAGE: 63 years EKG: SINUS TACHYCARDIA ABNORMAL RHYTHM ECG INTERPRETATION BASED ON A DEFAULT AGE OF 40 YEARS Sin ce the PREVIOUS TRACING , no significant change noted PREVIOUS TRACIN07/11/2018 14.21 DOCTOR: Delfino Martini Interpretating Date/Time 08/18/2018 12:51:32
--- NOTE | 2018-08-18 13:03 | P.HPIM ---
History of Present Illness Primary Care Physician: [facility] History of Present Illness: 63 year old male with DM, HTN, COPD, AFIB, and tobacco abuse presenting with shortness of breath. The patient states when the weather got very cold about four days ago he started feeling a scratchy throat and a dry cough, and by the next day he started having shortness of breath that got progressively worse to the point where he called his brother to take him to the ER today. He states he used his albuterol inhaler sparingly during this time because he states he didn' t want to make his heart rate go up since his last hospitalization he required cardioversion for persistent atrial fibrillation with RVR. The patient denies fever, chills, ear pain, rhinorrhea, or further sore throat. He did not get a flu shot this season and reports he doesn't get any vaccines ("Never have. Never will.") He did not take his diltiazem yet today because he states he usually takes it around noon. Heart rate is in the 120s and is NSR. He denies palpitations or sensation of racing heart. He endorses intermittent chest pressure in the past several days that is occasionally a sharp pain and unrelated to exertion. Presently during my encounter he states he is feeling better and his breathing has greatly improved since coming to the ED and receiving some treatments. PMH: DM, HTN, COPD, AFIB (s/p JAZMIN with ablation in June), tobacco abuse, chronic back pain Surgical Hx: none Family Hx: mother had DM, father had heart problems Social Hx: lives with brother, denies EtOH, trying to quit and has had about 4 cigarettes in the last month but prior had been smoking 1-2PPD for at least 40 years, smokes marijuana - Diagnosis (1) COPD exacerbation (2) Tachycardia Review of Systems All other systems reviewed negative except as stated in HPI PMF - History History Provided By: Patient - Medical History Medical History: Medical History (Last Reviewed 08/18/18 @ 10:48 by Kiki Kelly RN) Back pain COPD (chronic obstructive pulmonary disease) Diabetes HTN (hypertension) - Surgical History Surgical History: Surgical History (Last Reviewed 08/18/18 @ 10:48 by Kiki Kelly RN) No history of previous surgery - Family History Family History: Family History (Last Updated 08/18/18 @ 13:51 by Jody Pinzon MD) Other Diabetes Heart disease - Tobacco History Second Hand Smoke Exposure: Yes Smoking Status: Former smoker Tobacco Type: Cigarettes - Alcohol History How Often Do You Have a Drink Containing Alcohol: Monthly or less - Substance Use History Substance History: No History of Abuse - Travel History Recent Travel in the [place] Within the Last 8 Weeks: No Recent Travel Out of the Country Within the Last 8 Weeks: No - Immunization History Tetanus Immunization: <5 Years Medications and Allergies Active Medications: Active Medications Sodium Chloride (Ns Flush) 2 ml IV.FLUSH UNSCH PRN PRN Reason: FLUSH AFTER USING IV ACCESS Last Admin: 08/18/18 12:13 Dose: 2 ml Allergies Allergy/AdvReac Type Severity Reaction Status Date / Time cephalexin Allergy Severe RASH Verified 08/18/18 10:27 lisinopril Allergy Anaphylaxis Verified 08/18/18 10:28 Home Medications Medication Instructions Recorded Confirmed Type albuterol sulfate 2.5 mg INHALATION Q4-6H PRN 08/18/18 08/18/18 History apixaban [Eliquis] 5 mg PO BID 08/18/18 08/18/18 History aspirin [Aspir-81] 81 mg PO DAILY 08/18/18 08/18/18 History budesonide-formoterol 2 puff INHALATION Q12H 08/18/18 08/18/18 History diltiazem HCl [DILT-XR] 120 mg PO DAILY 08/18/18 08/18/18 History glipizide 10 mg PO BID 08/18/18 08/18/18 History guaifenesin 400 mg PO BID PRN 08/18/18 08/18/18 History insulin glargine 10 unit SUBCUT BID 08/18/18 08/18/18 History levofloxacin 750 mg PO DAILY 08/18/18 08/18/18 History simvastatin 40 mg PO QPM 08/18/18 08/18/18 History tiotropium bromide 1 cap INHALATION DAILY 08/18/18 08/18/18 History Exam Vital signs: Vital Signs 08/18/18 10:15 08/18/18 10:20 08/18/18 11:00 Temperature 98.4 F Pulse Rate 130 H 121 H 126 H Respiratory Rate 28 H 40 H 34 H Blood Pressure 173/96 H 172/96 H 140/84 Pulse Oximetry 94 L 95 98 08/18/18 11:01 08/18/18 11:02 08/18/18 11:47 Temperature Pulse Rate 122 H 124 H 126 H Respiratory Rate 20 20 18 Blood Pressure Pulse Oximetry 08/18/18 11:48 08/18/18 12:45 Temperature Pulse Rate 127 H 123 H Respiratory Rate 24 18 Blood Pressure Pulse Oximetry 97 Intake & Output 08/17/18 08/18/18 08/18/18 18:59 06:59 18:59 Weight 99.79 kg Narrative: GENERAL: Overweight male sitting up in bed in NAD. SKIN: Warm and dry. Scattered actinic keratoses. No jaundice. HEENT: AT/NC. PERRLA. EOMI. No nasal drainage. Nasal cannula in place. MMM. No oral lesions or thrush. NECK: Supple no tender LAD or JVD. HEART: Tachycardic with a regular rhythm. LUNGS: Course breath sounds with inspiratory and expiratory wheezing. No appreciable crackles. Appears to be breathing comfortably. Speaking in complete sentences. ABDOMEN: Protuberant, firm abdomen with no tenderness on palpation. EXTREMITIES: No LE edema. Diminished, rapid pedal pulses. NEURO: Awake and alert. Nonfocal. PSYCH: Appropriate mood and affect. Results - Labs CBC & Chem 7: 08/18/18 10:40 08/18/18 10:40 Labs: Short CBC 08/18/18 Range/Units 10:40 WBC 15.1 H (4.0-11.0) th/mm3 Hgb 16.2 (13.0-17.0) gm/dL Hct 48.2 (39.0-51.0) % Plt Count 285 (150-450) th/mm3 BMP 08/18/18 10:40 Sodium 130 L Potassium 5.4 H Chloride 96 L Carbon Dioxide 27.1 BUN 11 Creatinine 1.25 Calcium 8.4 L Cardiac Enzymes 08/18/18 Range/Units 10:40 Total Creatine Kinase 184 (39-308) U/L CK-MB (CK-2) 3.3 (0.5-3.6) ng/mL Troponin I Less than 0.02 L (0.02-0.05) ng/mL Liver Function 08/18/18 Range/Units 10:40 Total Bilirubin 0.7 (0.2-1.0) mg/dL AST 38 H (15-37) U/L ALT 27 (12-78) U/L Alkaline Phosphatase 74 (45-117) U/L Albumin 3.9 (3.4-5.0) g/dL - Imaging Impressions Chest X-Ray 08/18/18 10:25 CONCLUSION: No acute intrathoracic disease. Stable exam. Caprini VTE Risk Assessment Caprini VTE Risk Assessment: Moderate/High Risk (score >= 2) Caprini Risk Assessment Model: Point Value = 1 Point Value = 2 Point Value = 3 Point Value = 5 Age 41-60 Minor surgery BMI > 25 kg/m2 Swollen legs Varicose veins or History of unexplained or recurrent spontaneous Oral contraceptives or hormone replacement Sepsis (< 1 month) Serious lung disease, including pneumonia (< 1 month) Abnormal pulmonary function Acute myocardial infarction Congestive heart failure (< 1 month) History of inflammatory bowel disease Medical patient at bed rest Age 61-74 Arthroscopic surgery Major open surgery (> 45 min) Laparoscopic surgery (> 45 min) Malignancy Confined to bed (> 72 hours) Immobilizing plaster cast Central venous access Age >= 75 History of VTE Family history of VTE Factor V Leiden Prothrombin [id number] Lupus anticoagulant Anticardiolipin antibodies Elevated serum homocysteine Heparin-induced thrombocytopenia Other congenital or acquired thrombophilia Stroke (< 1 month) Elective arthroplasty Hip, pelvis, or leg fracture Acute spinal cord injury (< 1 month) Prophylaxis Regimen: Total Risk Factor Score Risk Level Prophylaxis Regimen 0-1 Low Early ambulation 2 Moderate Order ONE of the following: *Sequential Compression Device (SCD) *Heparin 5000 units SQ BID 3-4 Higher Order ONE of the following medications: *Heparin 5000 units SQ TID *Enoxaparin/Lovenox 40 mg SQ daily (WT < 150 kg, CrCl > 30 mL/min) *Enoxaparin/Lovenox 30 mg SQ daily (WT < 150 kg, CrCl > 10-29 mL/min) *Enoxaparin/Lovenox 30 mg SQ BID (WT < 150 kg, CrCl > 30 mL/min) AND/OR *Sequential Compression Device (SCD) 5 or more Highest Order ONE of the following medications: *Heparin 5000 units SQ TID (Preferred with Epidurals) *Enoxaparin/Lovenox 40 mg SQ daily (WT < 150 kg, CrCl > 30 mL/min) *Enoxaparin/Lovenox 30 mg SQ daily (WT < 150 kg, CrCl > 10-29 mL/min) *Enoxaparin/Lovenox 30 mg SQ BID (WT < 150 kg, CrCl > 30 mL/min) AND *Sequential Compression Device (SCD) Assessment and Plan - Assessment (1) COPD exacerbation Code(s): J44.1 - Chronic obstructive pulmonary disease with (acute) exacerbation Status: Acute (2) Tachycardia Code(s): R00.0 - Tachycardia, unspecified Status: Acute - Plan 63 year old male with history of DM, HTN, tobacco abuse, and COPD admitted for COPD exacerbation. 1. COPD exacerbation - VS with tachycardia, tachypnea, and requiring up to 4L to maintain sats - CBC with leukocytosis (WBC 15.5) - CXR with no evidence of pulmonary infiltrate or consolidation, personally reviewed - ABG normal on 2L O2 - Received DuoNeb and SoluMedrol in the ER - Continue DuoNeb Q6H while awake - Solumedrol 40 mg IV Q8H - Supplemental O2 PRN - Azithromycin 500 mg PO daily - Mucinex - Check influenza 2. Atrial fibrillation - Recently diagnosed during admission in June - Underwent JAZMIN with cardioversion at that time - On Eliquis and Cardizem - Currently not in atrial fib though tachycardic - Monitor on tele 3. Tachycardia - Pt with history of AFIB but EKG showing sinus tach with rate in 120s - Will continue to follow closely and see if it improves with improvement in his respiratory status and after continuing his Cardizem which he hasn't taken today - Cardizem 180 mg x 1 this afternoon then resume home dose of 120 mg tomorrow and can increase as needed - Metoprolol IV PRN HR >110 - Monitor on tele 4. DM - A1c 11.4 in June - Levemir 10 units BID and adjust - SSI with Accu-Cheks per protocol 5. HTN - Resume home Diltiazem - Monitor BPs - Clonidine PRN 6. Cardiomyopathy - EF in June was 40-45% at the time was felt to be secondary to AFIB RVR - Pt following with [place] cardiology 7. Tobacco abuse - Pt trying to quit - Counseled on cessation DVT prophylaxis: Eliquis Code Status: FULL Discussed Condition With: Patient Discharge Planning: Once respiratory status and tachycardia improves and patient tolerating PO meds
[2018-08-18] MEDS: Azithromycin 250 MG Tablet PO SCH (13:18)
[2018-08-18] MEDS ORDERED: Metoprolol Inj 5 MG/5 ML Vial IV.PUSH PRN (14:13)
[2018-08-18] MEDS ORDERED: dilTIAZem CD 180 MG Capsule PO ONE (15:00)
[2018-08-18 15:45] LABS: Calcium 7.7 mg/dL (8.5-10.1); Carbon Dioxide 27.3 meq/L (21.0-32.0); Potassium 4.2 meq/L (3.5-5.1)
[2018-08-18] MEDS: Insulin NovoLOG Aspart Correctional Sugar Inj SQ SCH ×2 (17:15→21:56)
[2018-08-18] MEDS: Budesonide-Formoterol 160/4.5 MCG 6 GM Inhaler INH SCH (17:33)
[2018-08-18] MEDS ORDERED: MethylPREDNISolone Sod Succinate Inj 125 MG/2 ML Vial IV.PUSH SCH (20:00)
[2018-08-18] MEDS: Senna/Docusate Sodium 8.6/50 MG Tablet PO SCH (20:00)
[2018-08-18] MEDS: guaiFENesin 600 MG ER Tablet PO SCH (20:00)
[2018-08-18] MEDS ORDERED: Sodium Chlor 0.9% Inj 250 ML IV.SIG ONE (20:00)
[2018-08-18] MEDS: Insulin Detemir Inj 1,000 UNIT/10 ML Vial SQ SCH (20:00)
[2018-08-18 20:05] LABS: VBG Base Excess -2.4 mmol/L (-2-2); VBG Blood Gas Oxygen Content 17.6 Vol % (9.0-17.0); VBG PCO2 40 mmHG (44-48); VBG PH 7.36 (7.360-7.400); VBG PO2 59 mmHG (35-40)
[2018-08-18] MEDS ORDERED: Insulin Detemir Inj 1,000 UNIT/10 ML Vial SQ SCH ×2 (21:00)
[2018-08-18] MEDS ORDERED: Heparin - SQ 10,000 UNITS/ML Vial SQ SCH (21:00)
[2018-08-18] MEDS: MethylPREDNISolone Sod Succinate Inj 40 MG/ML Vial IV.PUSH SCH (21:56)
[2018-08-18] MEDS: Sod Chloride 0.9% Inj 1,000 ML IV.CONT SCH (21:57)
[2018-08-19] MEDS: Budesonide-Formoterol 160/4.5 MCG 6 GM Inhaler INH SCH ×3 (04:46→20:48)
[2018-08-19] MEDS: MethylPREDNISolone Sod Succinate Inj 40 MG/ML Vial IV.PUSH SCH ×2 (05:56→12:59)
[2018-08-19] MEDS: Sod Chloride 0.9% Inj 1,000 ML IV.CONT SCH ×2 (06:35→09:04)
[2018-08-19 07:36] LABS: Baso % (Auto) 0.2 % (0.0-2.0); Hematocrit 42.2 % (39.0-51.0); Hemoglobin 14.5 gm/dL (13.0-17.0); Lymph # (Auto) 0.7 th/mm3 (1.0-4.8); Lymph % (Auto) 4.2 % (9.0-44.0); Mean Corpuscular HGB Conc 34.4 % (32.0-36.0); Mean Corpuscular Hemoglobin 32.5 pg (27.0-34.0); Mean Corpuscular Volume 94.5 fL (80.0-100.0); Mean Platelet Volume 8.7 fL (7.0-11.0); Mono # (Auto) 0.7 th/mm3 (0.0-0.9); Neut # (Auto) 15.3 th/mm3 (1.8-7.7); Neut % (Auto) 91.6 % (16.0-70.0); Platelet Count 272 th/mm3 (150-450); Red Blood Count 4.47 mil/mm3 (4.50-5.90); Red Cell Distribution Width 13.6 % (11.6-17.2); White Blood Count 16.7 th/mm3 (4.0-11.0)
[2018-08-19 07:39] LABS: Bilirubin,Urine Negative (Negative); Clarity,Urine Clear (Clear); Color,Urine Straw (Yellw/Straw); Glucose,Urine (UA) 500 or Greater mg/dL (Negative); Leukocyte Esterase,Urine Negative (Negative); Nitrite,Urine Negative (Negative); Specific Gravity,Urine 1.021 (1.002-1.035)
[2018-08-19 08:08] LABS: Calcium 8.3 mg/dL (8.5-10.1); Carbon Dioxide 26.4 meq/L (21.0-32.0); Potassium 4.5 meq/L (3.5-5.1)
[2018-08-19] MEDS: Insulin NovoLOG Aspart Correctional Sugar Inj SQ SCH ×4 (09:03→20:47)
[2018-08-19] MEDS: Insulin Detemir Inj 1,000 UNIT/10 ML Vial SQ SCH ×2 (09:04→20:45)
[2018-08-19] MEDS: guaiFENesin 600 MG ER Tablet PO SCH ×2 (09:04→20:46)
[2018-08-19] MEDS: dilTIAZem CD 120 MG Capsule PO SCH (09:04)
[2018-08-19] MEDS: Azithromycin 250 MG Tablet PO SCH (09:04)
[2018-08-19] MEDS: Senna/Docusate Sodium 8.6/50 MG Tablet PO SCH ×2 (09:05→20:46)
[2018-08-19] MEDS: predniSONE 20 MG Tablet PO SCH (20:46)
--- NOTE | 2018-08-19 22:36 | P.PN ---
Subjective Interval history: Follow up for COPD exacerbation. Patient is doing well. He is on supplemental O2 via [place]. No fever, chills. He reports improvement of his breathing. No fever, chills. Physical Exam Vital signs: Vital Signs 08/19/18 00:00 08/19/18 04:00 08/19/18 08:00 Temperature 97.9 F 97.8 F 98.0 F Pulse Rate 105 H 104 H 104 H Respiratory Rate 20 20 18 Blood Pressure 128/59 L 151/79 H 153/84 H Pulse Oximetry 96 96 94 L 08/19/18 08:26 08/19/18 12:00 08/19/18 12:10 Temperature 98.0 F Pulse Rate 98 H 109 H 104 H Respiratory Rate 16 18 20 Blood Pressure 116/73 Pulse Oximetry 96 93 L 08/19/18 16:00 08/19/18 20:00 Temperature 98.4 F 97.9 F Pulse Rate 91 H 106 H Respiratory Rate 18 17 Blood Pressure 127/84 127/70 Pulse Oximetry 93 L 94 L Intake & Output 08/19/18 08/19/18 08/20/18 06:59 18:59 06:59 Intake Total 1111 / 1111 1408 / 1408 Balance 1111 / 1111 1408 / 1408 Intake: IV 1111 / 1111 700 / 700 NS Inj 1,000 ML @ 100 mls/hr IV 861 / 861 700 / 700 .CONT .Q10H SHADI Rx#:[id number] NS Inj 250 ML @ 250 mls/hr IV. 250 / 250 SIG NOW ONE Rx#:[id number] Oral 708 / 708 Other: # Voids 5 Narrative: GENERAL: Alert, oriented x 3, NAD. SKIN: Warm and dry. HEAD: Normocephalic. EYES: No scleral icterus. No injection or drainage. NECK: Supple, trachea midline. No JVD or lymphadenopathy. CARDIOVASCULAR: Regular rate and rhythm without murmurs, gallops, or rubs. RESPIRATORY: Moderate air entry, diffuse wheezing present throughout the lung adames. GASTROINTESTINAL: Abdomen soft, non-tender, nondistended. MUSCULOSKELETAL: No cyanosis, or edema. BACK: Nontender without obvious deformity. No CVA tenderness. Results - Labs CBC & Chem 7: 08/19/18 06:20 08/19/18 06:20 Laboratory Results - last 24 hr 1208/19/18 08/19/18 21:35 06:20 06:20 WBC 16.7 H RBC 4.47 L Hgb 14.5 Hct 42.2 MCV 94.5 MCH 32.5 MCHC 34.4 RDW 13.6 Plt Count 272 MPV 8.7 Neut % (Auto) 91.6 H Lymph % (Auto) 4.2 L Petroleum % (Auto) 4.0 Eos % (Auto) 0.0 Baso % (Auto) 0.2 Neut # (Auto) 15.3 H Lymph # (Auto) 0.7 L Petroleum # (Auto) 0.7 Eos # (Auto) 0.0 Baso # (Auto) 0.0 WBC Differential . Differential Comment Auto diff final Sodium 132 L Potassium 4.5 Chloride 99 Carbon Dioxide 26.4 Anion Gap 7 BUN 18 Creatinine 0.96 Estimated GFR 79 L POC Glucose Random Glucose 467 H* 323 H D Calcium 8.3 L Urine Color Urine Clarity Urine pH Ur Specific [place] Urine Protein Urine Glucose (UA) Urine Ketones Urine Occult Blood Urine Nitrate Urine Bilirubin Urine Urobilinogen Ur Leukocyte Esterase Urine RBC Urine WBC Ur Microscopic Review 08/19/18 08/19/18 08/19/18 07:00 08:17 11:49 WBC RBC Hgb Hct MCV MCH MCHC RDW Plt Count MPV Neut % (Auto) Lymph % (Auto) Petroleum % (Auto) Eos % (Auto) Baso % (Auto) Neut # (Auto) Lymph # (Auto) Petroleum # (Auto) Eos # (Auto) Baso # (Auto) WBC Differential Differential Comment Sodium Potassium Chloride Carbon Dioxide Anion Gap BUN Creatinine Estimated GFR POC Glucose 383 H 469 H* Random Glucose Calcium Urine Color Straw Urine Clarity Clear Urine pH 5.0 Ur Specific [place] 1.021 Urine Protein Negative Urine Glucose (UA) 500 or greater Urine Ketones 20 Urine Occult Blood Negative Urine Nitrate Negative Urine Bilirubin Negative Urine Urobilinogen Less than 2 Ur Leukocyte Esterase Negative Urine RBC Less than 1 Urine WBC Less than 1 Ur Microscopic Review Not Reportable 08/19/18 08/19/18 17:16 20:44 WBC RBC Hgb Hct MCV MCH MCHC RDW Plt Count MPV Neut % (Auto) Lymph % (Auto) Petroleum % (Auto) Eos % (Auto) Baso % (Auto) Neut # (Auto) Lymph # (Auto) Petroleum # (Auto) Eos # (Auto) Baso # (Auto) WBC Differential Differential Comment Sodium Potassium Chloride Carbon Dioxide Anion Gap BUN Creatinine Estimated GFR POC Glucose 367 H 341 H Random Glucose Calcium Urine Color Urine Clarity Urine pH Ur Specific [place] Urine Protein Urine Glucose (UA) Urine Ketones Urine Occult Blood Urine Nitrate Urine Bilirubin Urine Urobilinogen Ur Leukocyte Esterase Urine RBC Urine WBC Ur Microscopic Review Microbiology 08/18/18 20:57 Blood - Peripheral Aerobic Blood Culture - Preliminary No growth in 1 day 08/18/18 20:57 Blood - Peripheral Anaerobic Blood Culture - Preliminary No growth in 1 day 08/18/18 20:52 Blood - Peripheral Aerobic Blood Culture - Preliminary No growth in 1 day 08/18/18 20:52 Blood - Peripheral Anaerobic Blood Culture - Preliminary No growth in 1 day Assessment and Plan - Assessment (1) COPD exacerbation Code(s): J44.1 - Chronic obstructive pulmonary disease with (acute) exacerbation Status: Acute (2) Tachycardia Code(s): R00.0 - Tachycardia, unspecified Status: Acute - Plan Mr. Perry is a pleasant 63 year old male with a history of COPD, Afib who was admitted to the hospital due to shortness of breath. COPD exacerbation -Continue to wean off O2 to maintain O2 sat > 90% -Switch steroid to PO prednisone 20mg BID -Levaquin 750mg Qday. Continue breathing tx, Symbicort -Possible discharge home tomorrow. Atrial fibrillation - Recently diagnosed during admission in June - Underwent JAZMIN with cardioversion at that time - On Eliquis and Cardizem - Will consider beta satinder if needed. Diabetes mellitus -Change Levemir 15 units BID to 20 units QHS -Continue sliding scale insulin, add pre-meal insulin Aspart. Mild Cardiomyopathy - EF in June was 40-45% at the time was felt to be secondary to AFIB RVR - Pt following with [facility] Tobacco abuse - Pt trying to quit - Counseled on cessation Full code. Apixaban.
[2018-08-20] MEDS: Insulin NovoLOG Aspart Correctional Sugar Inj SQ SCH ×4 (09:14→20:06)
[2018-08-20] MEDS: levoFLOXacin 750 MG Tablet PO SCH (09:15)
[2018-08-20] MEDS: guaiFENesin 600 MG ER Tablet PO SCH ×2 (09:15→20:05)
[2018-08-20] MEDS: predniSONE 20 MG Tablet PO SCH ×2 (09:15→20:05)
[2018-08-20] MEDS: dilTIAZem CD 120 MG Capsule PO SCH (09:15)
[2018-08-20] MEDS: Budesonide-Formoterol 160/4.5 MCG 6 GM Inhaler INH SCH ×2 (09:16→20:04)
[2018-08-20] MEDS: Senna/Docusate Sodium 8.6/50 MG Tablet PO SCH ×2 (09:17→20:07)
--- NOTE | 2018-08-20 10:38 | P.PN ---
Subjective Interval history: Follow up for COPD exacerbation, atrial fibrillation. Patient is currently doing well. However, he complains of shortness of breath with even short distance walking. No fever or chills. Physical Exam Vital signs: Vital Signs 08/19/18 12:00 08/19/18 12:10 08/19/18 16:00 Temperature 98.0 F 98.4 F Pulse Rate 109 H 104 H 91 H Respiratory Rate 18 20 18 Blood Pressure 116/73 127/84 Pulse Oximetry 93 L 93 L Pulse Oximetry [Exertion on Room Air] Pulse Oximetry [Exertion with Oxygen] Pulse Oximetry [Resting with Oxygen] 08/19/18 20:00 08/19/18 20:09 08/20/18 00:00 Temperature 97.9 F 97.9 F Pulse Rate 106 H 88 76 Respiratory Rate 17 20 19 Blood Pressure 127/70 116/62 Pulse Oximetry 94 L 96 96 Pulse Oximetry [Exertion on Room Air] Pulse Oximetry [Exertion with Oxygen] Pulse Oximetry [Resting with Oxygen] 08/20/18 04:00 08/20/18 07:54 08/20/18 08:00 Temperature 97.6 F 97.5 F L Pulse Rate 70 78 76 Respiratory Rate 20 18 18 Blood Pressure 100/55 L 125/71 Pulse Oximetry 98 92 L 97 Pulse Oximetry [Exertion on Room Air] Pulse Oximetry [Exertion with Oxygen] Pulse Oximetry [Resting with Oxygen] 08/20/18 09:52 08/20/18 09:57 Temperature Pulse Rate 101 H Respiratory Rate 24 Blood Pressure Pulse Oximetry Pulse Oximetry [Exertion on Room Air] 88 L Pulse Oximetry [Exertion with Oxygen] 95 Pulse Oximetry [Resting with Oxygen] 98 Intake & Output 08/19/18 08/20/18 08/20/18 18:59 06:59 18:59 Intake Total 1408 / 1408 Output Total 750 / 750 Balance 1408 / 1408 -750 / -750 Weight 95.1 kg Intake: IV 700 / 700 NS Inj 1,000 ML @ 100 mls/hr IV 700 / 700 .CONT .Q10H SHADI Rx#:[id number] Oral 708 / 708 Output: Urine 750 / 750 Other: # Voids 5 Narrative: GENERAL: Alert, oriented x 3, NAD. SKIN: Warm and dry. HEAD: Normocephalic. EYES: No scleral icterus. No injection or drainage. NECK: Supple, trachea midline. No JVD or lymphadenopathy. CARDIOVASCULAR: Regular rate and rhythm without murmurs, gallops, or rubs. RESPIRATORY: Moderate air entry, diffuse wheezing present throughout the lung adames. GASTROINTESTINAL: Abdomen soft, non-tender, nondistended. MUSCULOSKELETAL: No cyanosis, or edema. BACK: Nontender without obvious deformity. No CVA tenderness. Results - Labs CBC & Chem 7: 08/19/18 06:20 08/19/18 06:20 Laboratory Results - last 24 hr 08/19/18 08/19/18 08/19/18 11:49 17:16 20:44 POC Glucose 469 H* 367 H 341 H 08/20/18 07:12 POC Glucose 208 H Microbiology 08/18/18 20:57 Blood - Peripheral Aerobic Blood Culture - Preliminary No growth in 1 day 08/18/18 20:57 Blood - Peripheral Anaerobic Blood Culture - Preliminary No growth in 1 day 08/18/18 20:52 Blood - Peripheral Aerobic Blood Culture - Preliminary No growth in 1 day 08/18/18 20:52 Blood - Peripheral Anaerobic Blood Culture - Preliminary No growth in 1 day - Imaging Chest X-Ray 08/18/18 10:25 CONCLUSION: No acute intrathoracic disease. Stable exam. - Procedures None Assessment and Plan - Assessment (1) COPD exacerbation Code(s): J44.1 - Chronic obstructive pulmonary disease with (acute) exacerbation Status: Acute (2) Tachycardia Code(s): R00.0 - Tachycardia, unspecified Status: Acute - Plan Mr. Perry is a pleasant 63 year old male with a history of COPD, Afib who was admitted to the hospital due to shortness of breath. COPD exacerbation -Continue to wean off O2 to maintain O2 sat > 90% -Switched steroid to PO prednisone 20mg BID -Levaquin 750mg Qday. Continue breathing tx, Symbicort -Diffuse wheezing may be baseline for the patient. -Walk test is positive and 2 L oxygen continue as ordered. Atrial fibrillation - Recently diagnosed during admission in June - Underwent JAZMIN with cardioversion at that time - On Eliquis and Cardizem - May consider beta satinder if needed. Diabetes mellitus -Continue Levemir 20 units QHS -Continue sliding scale insulin, add pre-meal insulin Aspart. Mild Cardiomyopathy - EF in June was 40-45% at the time was felt to be secondary to AFIB RVR - Pt following [facility] Tobacco abuse - Pt trying to quit - Counseled on cessation Full code. Apixaban. Discharg plan: Possible discharge home tomorrow 08/21/2018
[2018-08-20 10:45] LABS: Baso % (Auto) 0.1 % (0.0-2.0); Hematocrit 41.1 % (39.0-51.0); Lymph % (Auto) 3.8 % (9.0-44.0); Mean Corpuscular HGB Conc 34.1 % (32.0-36.0); Mean Corpuscular Hemoglobin 32.6 pg (27.0-34.0); Mean Corpuscular Volume 95.6 fL (80.0-100.0); Mean Platelet Volume 8.8 fL (7.0-11.0); Mono % (Auto) 7.5 % (0.0-8.0); Neut # (Auto) 23.4 th/mm3 (1.8-7.7); Neut % (Auto) 88.6 % (16.0-70.0); Platelet Count 273 th/mm3 (150-450); Red Cell Distribution Width 13.4 % (11.6-17.2); White Blood Count 26.5 th/mm3 (4.0-11.0)
[2018-08-20] MEDS: Insulin Detemir Inj 1,000 UNIT/10 ML Vial SQ SCH (20:06)
[2018-08-21] MEDS: predniSONE 20 MG Tablet PO SCH ×2 (09:08→20:31)
[2018-08-21] MEDS: dilTIAZem CD 120 MG Capsule PO SCH (09:08)
[2018-08-21] MEDS: guaiFENesin 600 MG ER Tablet PO SCH ×2 (09:08→20:31)
[2018-08-21] MEDS: levoFLOXacin 750 MG Tablet PO SCH (09:08)
[2018-08-21] MEDS: Senna/Docusate Sodium 8.6/50 MG Tablet PO SCH ×3 (09:08→20:31)
[2018-08-21] MEDS: Insulin NovoLOG Aspart Correctional Sugar Inj SQ SCH ×4 (11:32→20:34)
[2018-08-21] MEDS: Budesonide-Formoterol 160/4.5 MCG 6 GM Inhaler INH SCH ×2 (11:33→20:36)
--- NOTE | 2018-08-21 15:28 | P.PN ---
Subjective Interval history: Follow up for COPD exacerbation, atrial fibrillation. Still with shortness of breath with even short distance walking. + Wheezing, severe despite having nebulizers 2 hours ago. No chest pain + nonproductive cough No fever or chills. Feels tired not ready for discharge. Physical Exam Vital signs: Vital Signs 08/20/18 16:00 08/20/18 19:30 08/20/18 19:35 Temperature 98.3 F 98 F Pulse Rate 92 H 87 92 H Respiratory Rate 21 20 20 Blood Pressure 129/69 147/78 H Pulse Oximetry 96 94 L 96 08/20/18 20:00 08/20/18 20:35 08/21/18 00:00 Temperature 98 F 97.3 F L Pulse Rate 87 84 75 Respiratory Rate 20 18 Blood Pressure 147/78 H 130/73 Pulse Oximetry 94 L 98 08/21/18 04:00 08/21/18 04:17 08/21/18 08:00 Temperature 97.3 F L 96.2 F L Pulse Rate 73 63 70 Respiratory Rate 18 20 Blood Pressure 117/70 147/84 H Pulse Oximetry 99 100 08/21/18 08:33 08/21/18 12:00 08/21/18 13:26 Temperature 97.8 F Pulse Rate 68 80 111 H Respiratory Rate 18 20 18 Blood Pressure 155/77 H Pulse Oximetry 99 96 Intake & Output 08/20/18 08/21/18 08/21/18 18:59 06:59 18:59 Intake Total 480 / 480 240 / 240 Output Total 1300 / 1300 1200 / 1200 Balance -820 / -820 -960 / -960 Weight 95.1 kg Intake: Oral 480 / 480 240 / 240 Output: Urine 1300 / 1300 1200 / 1200 Other: # Voids 3 Date of Last Bowel Movement 08/18/18 08/21/18 Narrative: GENERAL: Alert, oriented x 3, NAD. CARDIOVASCULAR: Tachycardia. Regular rate and rhythm without murmurs, gallops, or rubs. RESPIRATORY: Decrease air entry, wheezing present throughout the lung adames. GASTROINTESTINAL: Abdomen soft, non-tender, nondistended. MUSCULOSKELETAL: No cyanosis, or edema. Results - Labs CBC & Chem 7: 08/20/18 10:15 08/19/18 06:20 Laboratory Results - last 24 hr 08/20/18 08/20/18 08/21/18 17:20 19:24 07:52 POC Glucose 327 H 392 H 129 H 08/21/18 11:53 POC Glucose 214 H Microbiology 08/18/18 20:57 Blood - Peripheral Aerobic Blood Culture - Preliminary No growth in 3 days 08/18/18 20:57 Blood - Peripheral Anaerobic Blood Culture - Preliminary No growth in 3 days 08/18/18 20:52 Blood - Peripheral Aerobic Blood Culture - Preliminary No growth in 3 days 08/18/18 20:52 Blood - Peripheral Anaerobic Blood Culture - Preliminary No growth in 3 days - Procedures None Assessment and Plan - Assessment (1) COPD exacerbation Code(s): J44.1 - Chronic obstructive pulmonary disease with (acute) exacerbation Status: Acute (2) Tachycardia Code(s): R00.0 - Tachycardia, unspecified Status: Acute - Plan Mr. Perry is a pleasant 63 year old male with a history of COPD, Afib who was admitted to the hospital due to shortness of breath. COPD exacerbation -Continue to wean off O2 to maintain O2 sat > 90% -Switched steroid to PO prednisone 20mg BID -Levaquin 750mg Qday. Continue breathing tx, Symbicort -Diffuse wheezing -Walk test is positive and 2 L oxygen continue as ordered. -consult pulm for evaluation as patient is not improving -Add ezpap, IS, change duonebs to scheduled Q4hrs Likely patient also with sleep apnea as with obese abdomen - Also give one dose of solumedrol IV 40 mg, continue PO, continue to taper as tolerated Atrial fibrillation - Recently diagnosed during admission in June - Underwent JAZMIN with cardioversion at that time - On Eliquis and Cardizem - May consider beta satinder if needed. Diabetes mellitus -Continue Levemir 20 units QHS -Continue sliding scale insulin, add pre-meal insulin Aspart. Mild Cardiomyopathy - EF in June was 40-45% at the time was felt to be secondary to AFIB RVR - Pt following with [facility] Tobacco abuse - Pt trying to quit - Counseled on cessation Full code. Apixaban. Discharg plan: Possible discharge home tomorrow 08/22/2018 if improves and less sob, taper steroids as indicated.
[2018-08-21] MEDS ORDERED: MethylPREDNISolone Sod Succinate Inj 40 MG/ML Vial IV.PUSH ONE (20:01)
[2018-08-21] MEDS: Insulin Detemir Inj 1,000 UNIT/10 ML Vial SQ SCH (20:32)
[2018-08-22] MEDS: Insulin NovoLOG Aspart Correctional Sugar Inj SQ SCH ×2 (08:30→12:03)
[2018-08-22] MEDS: Budesonide-Formoterol 160/4.5 MCG 6 GM Inhaler INH SCH (08:32)
[2018-08-22] MEDS: guaiFENesin 600 MG ER Tablet PO SCH (09:28)
[2018-08-22] MEDS: dilTIAZem CD 120 MG Capsule PO SCH (09:28)
[2018-08-22] MEDS: levoFLOXacin 750 MG Tablet PO SCH (09:28)
[2018-08-22] MEDS: predniSONE 20 MG Tablet PO SCH (09:29)
[2018-08-22] MEDS: Senna/Docusate Sodium 8.6/50 MG Tablet PO SCH (09:29)
--- NOTE | 2018-08-22 13:16 | P.PNIM ---
Subjective Interval history: 63 year old male with DM, HTN, COPD, AFIB, and tobacco abuse presenting with shortness of breath. The patient states when the weather got very cold about four days ago he started feeling a scratchy throat and a dry cough, and by the next day he started having shortness of breath that got progressively worse to the point where he called his brother to take him to the ER today. He states he used his albuterol inhaler sparingly during this time because he states he didn' t want to make his heart rate go up since his last hospitalization he required cardioversion for persistent atrial fibrillation with RVR. The patient denies fever, chills, ear pain, rhinorrhea, or further sore throat. He did not get a flu shot this season and reports he doesn't get any vaccines ("Never have. Never will.") He did not take his diltiazem yet today because he states he usually takes it around noon. Heart rate is in the 120s and is NSR. He denies palpitations or sensation of racing heart. He endorses intermittent chest pressure in the past several days that is occasionally a sharp pain and unrelated to exertion. Presently during my encounter he states he is feeling better and his breathing has greatly improved since coming to the ED and receiving some treatments. PMH: DM, HTN, COPD, AFIB (s/p JAZMIN with ablation in June), tobacco abuse, chronic back pain Surgical Hx: none Family Hx: mother had DM, father had heart problems Social Hx: lives with brother, denies EtOH, trying to quit and has had about 4 cigarettes in the last month but prior had been smoking 1-2PPD for at least 40 years, smokes marijuana 12-3 Follow up for COPD exacerbation. Patient is doing well. He is on supplemental O2 via [place]. No fever, chills. He reports improvement of his breathing. No fever, chills. 12-4 Follow up for COPD exacerbation, atrial fibrillation. Patient is currently doing well. However, he complains of shortness of breath with even short distance walking. No fever or chills. 12-5 Follow up for COPD exacerbation, atrial fibrillation. Still with shortness of breath with even short distance walking. + Wheezing, severe despite having nebulizers 2 hours ago. No chest pain + nonproductive cough No fever or chills. Feels tired not ready for discharge. Add to diagnosis: Acute respiratory failure requiring O2 supplement. Patient failed O2 walk test and will also need O2 at home. 12-6 HAS OXYGEN AT HOME DC TO HOME TODAY [facility] SWITCH TO PO MEDS AND DC DC TO HOME TODAY Physical Exam Vital signs: Vital Signs 08/21/18 13:26 08/21/18 16:00 08/21/18 19:11 Temperature 97.9 F Pulse Rate 111 H 80 80 Respiratory Rate 18 18 18 Blood Pressure 131/82 Pulse Oximetry 97 97 08/21/18 19:49 08/21/18 20:00 08/22/18 00:00 Temperature 97.9 F 97.6 F Pulse Rate 81 81 68 Respiratory Rate 20 20 Blood Pressure 141/78 H 115/66 Pulse Oximetry 94 L 96 08/22/18 04:00 08/22/18 08:00 08/22/18 08:09 Temperature 97.0 F L 97 F L Pulse Rate 71 97 H 81 Respiratory Rate 22 20 18 Blood Pressure 150/83 H 131/68 Pulse Oximetry 98 96 97 08/22/18 12:00 08/22/18 12:35 Temperature 97.4 F L Pulse Rate 93 H 86 Respiratory Rate 20 18 Blood Pressure 133/72 Pulse Oximetry 95 Intake & Output 08/21/18 08/22/18 08/22/18 18:59 06:59 18:59 Intake Total 960 / 960 420 / 420 Output Total 900 / 900 1200 / 1200 1999 Balance 60 / 60 -780 / -780 -1999 Weight 93.4 kg Intake: Oral 960 / 960 420 / 420 Output: Urine 900 / 900 1200 / 1200 1999 Other: Date of Last Bowel Movement 08/21/18 08/22/18 # Bowel Movements 2 Narrative: GENERAL: Overweight male sitting up in bed in [facility]. SKIN: Warm and dry. Scattered actinic keratoses. No jaundice. HEENT: AT/NC. PERRLA. EOMI. No nasal drainage. Nasal cannula in place. MMM. No oral lesions or thrush. NECK: Supple no tender LAD or JVD. HEART: Tachycardic with a regular rhythm. LUNGS: Course breath sounds with LESS inspiratory and expiratory wheezing. No appreciable crackles. Appears to be breathing comfortably. Speaking in complete sentences. ABDOMEN: Protuberant, firm abdomen with no tenderness on palpation. EXTREMITIES: No LE edema. Diminished, rapid pedal pulses. NEURO: Awake and alert. Nonfocal. PSYCH: Appropriate mood and affect. Results - Labs CBC & Chem 7: 08/20/18 10:15 08/19/18 06:20 Laboratory Results - last 24 hr 08/21/18 08/21/18 08/22/18 16:43 20:03 08:09 POC Glucose 278 H 277 H 344 H 08/22/18 11:50 POC Glucose 307 H Microbiology 08/18/18 20:57 Blood - Peripheral Aerobic Blood Culture - Preliminary No growth in 4 days 08/18/18 20:57 Blood - Peripheral Anaerobic Blood Culture - Preliminary No growth in 4 days 08/18/18 20:52 Blood - Peripheral Aerobic Blood Culture - Preliminary No growth in 4 days 08/18/18 20:52 Blood - Peripheral Anaerobic Blood Culture - Preliminary No growth in 4 days - Imaging ITS Impressions Chest X-Ray 08/18/18 10:25 CONCLUSION: No acute intrathoracic disease. Stable exam. - Procedures None Assessment and Plan - Assessment (1) COPD exacerbation Code(s): J44.1 - Chronic obstructive pulmonary disease with (acute) exacerbation Status: Acute (2) Tachycardia Code(s): R00.0 - Tachycardia, unspecified Status: Acute - Plan Mr. Perry is a pleasant 63 year old male with a history of COPD, Afib who was admitted to the hospital due to shortness of breath. COPD exacerbation ACUTE ON CHRONIC RESPIRATORY FAILURE NEEDS HOME OXYGEN 2L BY NC - FAILED WALK TEST -Continue to wean off O2 to maintain O2 sat > 90% -Switched steroid to PO prednisone 20mg BID -Levaquin 750mg Qday. Continue breathing tx, Symbicort -Diffuse wheezing -Walk test is positive and 2 L oxygen continue as ordered. -consult pulm for evaluation as patient is not improving -Add ezpap, IS, change duonebs to scheduled Q4hrs Likely patient also with sleep apnea as with obese abdomen - Also give one dose of solumedrol IV 40 mg, continue PO, continue to taper as tolerated Atrial fibrillation - Recently diagnosed during admission in June - Underwent JAZMIN with cardioversion at that time - On Eliquis and Cardizem - May consider beta satinder if needed. Diabetes mellitus -Continue Levemir 20 units QHS -Continue sliding scale insulin, add pre-meal insulin Aspart. Mild Cardiomyopathy - EF in June was 40-45% at the time was felt to be secondary to AFIB RVR - Pt following with [facility] Tobacco abuse - Pt trying to quit - Counseled on cessation Full code. Apixaban. SWITCH TO PO MEDS DC TO HOME TODAY LOOKS COMFORTABLE ON OXYGEN DC TO HOME TODAY FOLLOW UP WITH [facility] Code Status: FULL CODE Discussed Condition With: RN AND PT AND CM Discharge Planning: DC TO HOME SWITCH TO PO MEDS DC TODAY HAS HOME OXYGEN
--- NOTE | 2018-08-22 13:29 | P.DS ---
Date of admission: 08/18/18 12:47 Primary care physician: [facility] Attending physician on discharge: Scott Davis Anticipated date of discharge: 08/22/18 Brief History from admission: 63 year old male with DM, HTN, COPD, AFIB, and tobacco abuse presenting with shortness of breath. The patient states when the weather got very cold about four days ago he started feeling a scratchy throat and a dry cough, and by the next day he started having shortness of breath that got progressively worse to the point where he called his brother to take him to the ER today. He states he used his albuterol inhaler sparingly during this time because he states he didn' t want to make his heart rate go up since his last hospitalization he required cardioversion for persistent atrial fibrillation with RVR. The patient denies fever, chills, ear pain, rhinorrhea, or further sore throat. He did not get a flu shot this season and reports he doesn't get any vaccines ("Never have. Never will.") He did not take his diltiazem yet today because he states he usually takes it around noon. Heart rate is in the 120s and is NSR. He denies palpitations or sensation of racing heart. He endorses intermittent chest pressure in the past several days that is occasionally a sharp pain and unrelated to exertion. Presently during my encounter he states he is feeling better and his breathing has greatly improved since coming to the ED and receiving some treatments. PMH: DM, HTN, COPD, AFIB (s/p JAZMIN with ablation in June), tobacco abuse, chronic back pain Surgical Hx: none Family Hx: mother had DM, father had heart problems Social Hx: lives with brother, denies EtOH, trying to quit and has had about 4 cigarettes in the last month but prior had been smoking 1-2PPD for at least 40 years, smokes marijuana Patient update on day of discharge: 63 year old male with DM, HTN, COPD, AFIB, and tobacco abuse presenting with shortness of breath. The patient states when the weather got very cold about four days ago he started feeling a scratchy throat and a dry cough, and by the next day he started having shortness of breath that got progressively worse to the point where he called his brother to take him to the ER today. He states he used his albuterol inhaler sparingly during this time because he states he didn' t want to make his heart rate go up since his last hospitalization he required cardioversion for persistent atrial fibrillation with RVR. The patient denies fever, chills, ear pain, rhinorrhea, or further sore throat. He did not get a flu shot this season and reports he doesn't get any vaccines ("Never have. Never will.") He did not take his diltiazem yet today because he states he usually takes it around noon. Heart rate is in the 120s and is NSR. He denies palpitations or sensation of racing heart. He endorses intermittent chest pressure in the past several days that is occasionally a sharp pain and unrelated to exertion. Presently during my encounter he states he is feeling better and his breathing has greatly improved since coming to the ED and receiving some treatments. PMH: DM, HTN, COPD, AFIB (s/p JAZMIN with ablation in June), tobacco abuse, chronic back pain Surgical Hx: none Family Hx: mother had DM, father had heart problems Social Hx: lives with brother, denies EtOH, trying to quit and has had about 4 cigarettes in the last month but prior had been smoking 1-2PPD for at least 40 years, smokes marijuana 12-3 Follow up for COPD exacerbation. Patient is doing well. He is on supplemental O2 via [place]. No fever, chills. He reports improvement of his breathing. No fever, chills. 12-4 Follow up for COPD exacerbation, atrial fibrillation. Patient is currently doing well. However, he complains of shortness of breath with even short distance walking. No fever or chills. 12-5 Follow up for COPD exacerbation, atrial fibrillation. Still with shortness of breath with even short distance walking. + Wheezing, severe despite having nebulizers 2 hours ago. No chest pain + nonproductive cough No fever or chills. Feels tired not ready for discharge. Add to diagnosis: Acute respiratory failure requiring O2 supplement. Patient failed O2 walk test and will also need O2 at home. 12-6 HAS OXYGEN AT HOME DC TO HOME TODAY FOLLOW UP WITH [facility] TO PO MEDS AND DC DC TO HOME TODAY DS: Diagnosis - Discharge Diagnosis (1) COPD exacerbation Status: Acute (2) Tachycardia Status: Acute (3) Acute and chronic respiratory failure Status: Acute (4) Afib Status: Acute (5) Hypomagnesemia Status: Acute DS: Medications - Discharge Medications Prescriptions: apixaban [Eliquis] 5 mg PO BID #60 tab aspirin [Aspir-81] 81 mg PO DAILY #30 tab budesonide-formoterol 2 puff INHALATION Q12H #1 inh diltiazem HCl [DILT-XR] 120 mg PO DAILY #30 cap glipizide 10 mg PO BID #60 tab guaifenesin [Mucinex] 600 mg PO BID #60 tab insulin glargine 10 unit SUBCUT BID #10 ml ipratropium-albuterol 1 amp NEB Q4HR WHILE AWAKE NEB #180 amp levofloxacin 750 mg PO DAILY #5 tab metformin 500 mg PO BID #60 tab prednisone 20 mg PO BID #10 tab sennosides-docusate sodium [Senna Plus] 1 tab PO BID #60 tab simvastatin 40 mg PO QPM #30 tab tiotropium bromide 1 cap INHALATION DAILY #30 inh DS: Summary Hospital Course: 63 year old male with DM, HTN, COPD, AFIB, and tobacco abuse presenting with shortness of breath. The patient states when the weather got very cold about four days ago he started feeling a scratchy throat and a dry cough, and by the next day he started having shortness of breath that got progressively worse to the point where he called his brother to take him to the ER today. He states he used his albuterol inhaler sparingly during this time because he states he didn' t want to make his heart rate go up since his last hospitalization he required cardioversion for persistent atrial fibrillation with RVR. The patient denies fever, chills, ear pain, rhinorrhea, or further sore throat. He did not get a flu shot this season and reports he doesn't get any vaccines ("Never have. Never will.") He did not take his diltiazem yet today because he states he usually takes it around noon. Heart rate is in the 120s and is NSR. He denies palpitations or sensation of racing heart. He endorses intermittent chest pressure in the past several days that is occasionally a sharp pain and unrelated to exertion. Presently during my encounter he states he is feeling better and his breathing has greatly improved since coming to the ED and receiving some treatments. PMH: DM, HTN, COPD, AFIB (s/p JAZMIN with ablation in June), tobacco abuse, chronic back pain Surgical Hx: none Family Hx: mother had DM, father had heart problems Social Hx: lives with brother, denies EtOH, trying to quit and has had about 4 cigarettes in the last month but prior had been smoking 1-2PPD for at least 40 years, smokes marijuana 12-3 Follow up for COPD exacerbation. Patient is doing well. He is on supplemental O2 via [place]. No fever, chills. He reports improvement of his breathing. No fever, chills. 12-4 Follow up for COPD exacerbation, atrial fibrillation. Patient is currently doing well. However, he complains of shortness of breath with even short distance walking. No fever or chills. 12-5 Follow up for COPD exacerbation, atrial fibrillation. Still with shortness of breath with even short distance walking. + Wheezing, severe despite having nebulizers 2 hours ago. No chest pain + nonproductive cough No fever or chills. Feels tired not ready for discharge. Add to diagnosis: Acute respiratory failure requiring O2 supplement. Patient failed O2 walk test and will also need O2 at home. 12-6 HAS OXYGEN AT HOME DC TO HOME TODAY [facility]LLOW [facility] WITH [facility] TO PO MEDS AND DC DC TO HOME TODAY - Time Spent with Patient Total time spent providing and/or coordinating discharge services: Greater than 30 minutes - Quality: VTE Deep Vein Thrombosis/Pulmonary Embolism Present on Admission: No Exam Vital signs: Vital Signs 08/21/18 13:26 08/21/18 16:00 08/21/18 19:11 Temperature 97.9 F Pulse Rate 111 H 80 80 Respiratory Rate 18 18 18 Blood Pressure 131/82 Pulse Oximetry 97 97 08/21/18 19:49 08/21/18 20:00 08/22/18 00:00 Temperature 97.9 F 97.6 F Pulse Rate 81 81 68 Respiratory Rate 20 20 Blood Pressure 141/78 H 115/66 Pulse Oximetry 94 L 96 08/22/18 04:00 08/22/18 08:00 08/22/18 08:09 Temperature 97.0 F L 97 F L Pulse Rate 71 97 H 81 Respiratory Rate 22 20 18 Blood Pressure 150/83 H 131/68 Pulse Oximetry 98 96 97 08/22/18 12:00 08/22/18 12:35 Temperature 97.4 F L Pulse Rate 93 H 86 Respiratory Rate 20 18 Blood Pressure 133/72 Pulse Oximetry 95 Intake & Output 08/21/18 08/22/18 08/22/18 18:59 06:59 18:59 Intake Total 960 / 960 420 / 420 Output Total 900 / 900 1200 / 1200 1999 Balance 60 / 60 -780 / -780 -1999 Weight 93.4 kg Intake: Oral 960 / 960 420 / 420 Output: Urine 900 / 900 1200 / 1200 1999 Other: Date of Last Bowel Movement 08/21/18 08/22/18 # Bowel Movements 2 Narrative: GENERAL: Overweight male sitting up in bed in [facility]. SKIN: Warm and dry. Scattered actinic keratoses. No jaundice. HEENT: AT/NC. PERRLA. EOMI. No nasal drainage. Nasal cannula in place. MMM. No oral lesions or thrush. NECK: Supple no tender LAD or JVD. HEART: Tachycardic with a regular rhythm. LUNGS: Course breath sounds with LESS inspiratory and expiratory wheezing. No appreciable crackles. Appears to be breathing comfortably. Speaking in complete sentences. ABDOMEN: Protuberant, firm abdomen with no tenderness on palpation. EXTREMITIES: No LE edema. Diminished, rapid pedal pulses. NEURO: Awake and alert. Nonfocal. PSYCH: Appropriate mood and affect. Results Procedures completed during hospitalization: None Completed studies during hospitalization: Laboratory Results WBC 26.5 th/mm3 (4.0-11.0) H 08/20/18 10:15 RBC 4.30 mil/mm3 (4.50-5.90) L 08/20/18 10:15 Hgb 14.0 gm/dL (13.0-17.0) 08/20/18 10:15 Hct 41.1 % (39.0-51.0) 08/20/18 10:15 MCV 95.6 fL (80.0-100.0) 08/20/18 10:15 MCH 32.6 pg (27.0-34.0) 08/20/18 10:15 MCHC 34.1 % (32.0-36.0) 08/20/18 10:15 RDW 13.4 % (11.6-17.2) 08/20/18 10:15 Plt Count 273 th/mm3 (150-450) 08/20/18 10:15 MPV 8.8 fL (7.0-11.0) 08/20/18 10:15 Neut % (Auto) 88.6 % (16.0-70.0) H 08/20/18 10:15 Lymph % (Auto) 3.8 % (9.0-44.0) L 08/20/18 10:15 Marion % (Auto) 7.5 % (0.0-8.0) 08/20/18 10:15 Eos % (Auto) 0.0 % (0.0-4.0) 08/20/18 10:15 Baso % (Auto) 0.1 % (0.0-2.0) 08/20/18 10:15 Neut # (Auto) 23.4 th/mm3 (1.8-7.7) H 08/20/18 10:15 Lymph # (Auto) 1.0 th/mm3 (1.0-4.8) 08/20/18 10:15 Marion # (Auto) 2.0 th/mm3 (0.0-0.9) H 08/20/18 10:15 Eos # (Auto) 0.0 th/mm3 (0.0-0.4) 08/20/18 10:15 Baso # (Auto) 0.0 th/mm3 (0.0-0.2) 08/20/18 10:15 WBC Differential . 08/20/18 10:15 Differential Comment Auto diff final 08/20/18 10:15 PT 10.6 sec (9.8-11.6) 08/18/18 10:40 INR 1.0 Ratio 08/18/18 10:40 APTT 30.9 sec (23.4-31.7) 08/18/18 10:40 Puncture Site L hand 08/18/18 19:56 Patient Temperature 98.6 08/18/18 19:56 O2 Saturation 91 % (90-100) 08/18/18 12:20 ABG pH 7.39 (7.380-7.420) 08/18/18 12:20 ABG pCO2 42 mmHg (38-42) 08/18/18 12:20 ABG pO2 68 mmHg (61-120) 08/18/18 12:20 ABG HCO3 25 mmol/L (22-26) 08/18/18 12:20 ABG O2 Content 18.9 Vol % (12.0-20.0) 08/18/18 12:20 ABG Base Excess 0.4 mmol/L (-2-2) 08/18/18 12:20 ABG Methemoglobin 0.7 % (0-2) 08/18/18 12:20 Sudeep Test Present 08/18/18 12:20 VBG pH 7.36 (7.360-7.400) 08/18/18 19:56 VBG pCO2 40 mmHG (44-48) L 08/18/18 19:56 VBG pO2 59 mmHG (35-40) H 08/18/18 19:56 VBG HCO3 22 mmol/L (22-26) 08/18/18 19:56 VBG O2 Saturation 87 % (70-76) H 08/18/18 19:56 VBG O2 Content 17.6 Vol % (9.0-17.0) H 08/18/18 19:56 VBG Base Excess -2.4 mmol/L (-2-2) L 08/18/18 19:56 VBG Carboxyhemoglobin 1.4 % (0-4) 08/18/18 19:56 VBG Methemoglobin 1.0 % (0-2) 08/18/18 19:56 Hemoglobin 14.8 G/DL (12.0-16.0) 08/18/18 12:20 Hemoglobin 14.4 G/DL (12.0-16.0) 08/18/18 19:56 Carboxyhemoglobin 1.9 % (0-4) 08/18/18 12:20 O2 Delivery Device Nasal cannula 08/18/18 19:56 Liter Flow 2.00 L/M 08/18/18 19:56 Critical Value No 08/18/18 19:56 Sodium 132 meq/L (136-145) L 08/19/18 06:20 Potassium 4.5 meq/L (3.5-5.1) 08/19/18 06:20 Chloride 99 meq/L (98-107) 08/19/18 06:20 Carbon Dioxide 26.4 meq/L (21.0-32.0) 08/19/18 06:20 Anion Gap 7 meq/L (5-15) 08/19/18 06:20 BUN 18 mg/dL (7-18) 08/19/18 06:20 Creatinine 0.96 mg/dL (0.60-1.30) 08/19/18 06:20 Estimated GFR 79 mL/min (>89) L 08/19/18 06:20 POC Glucose 307 mg/dl (68-110) H 08/22/18 11:50 Random Glucose 323 mg/dL (74-106) H D 08/19/18 06:20 Lactic Acid 4.7 mmol/L (0.4-2.0) H* 08/18/18 21:07 Calcium 8.3 mg/dL (8.5-10.1) L 08/19/18 06:20 Magnesium 1.6 mg/dL (1.5-2.5) 08/18/18 10:40 Total Bilirubin 0.7 mg/dL (0.2-1.0) 08/18/18 10:40 AST 38 U/L (15-37) H 08/18/18 10:40 ALT 27 U/L (12-78) 08/18/18 10:40 Alkaline Phosphatase 74 U/L (45-117) 08/18/18 10:40 Total Creatine Kinase 184 U/L (39-308) 08/18/18 10:40 CK-MB (CK-2) 3.3 ng/mL (0.5-3.6) 08/18/18 10:40 Troponin I Less than 0.02 ng/mL (0.02-0.05) L 08/18/18 10:40 B-Natriuretic Peptide 19 pg/mL (0-100) 08/18/18 10:40 Total Protein 8.7 g/dL (6.4-8.2) H 08/18/18 10:40 Albumin 3.9 g/dL (3.4-5.0) 08/18/18 10:40 Beta-Hydroxybutyric Acd 0.62 mmol/L (0.00-0.39) H 08/18/18 18:00 Urine Color Straw (Yellw/Straw) 08/19/18 07:00 Urine Clarity Clear (Clear) 08/19/18 07:00 Urine pH 5.0 (5.0-8.5) 08/19/18 07:00 Ur Specific [place] 1.021 (1.002-1.035) 08/19/18 07:00 Urine Protein Negative mg/dL (Neg-Trace) 08/19/18 07:00 Urine Glucose (UA) 500 or greater mg/dL (Negative) 08/19/18 07:00 Urine Ketones 20 mg/dL (Negative) 08/19/18 07:00 Urine Occult Blood Negative (Negative) 08/19/18 07:00 Urine Nitrate Negative (Negative) 08/19/18 07:00 Urine Bilirubin Negative (Negative) 08/19/18 07:00 Urine Urobilinogen Less than 2 mg/dL (Less than 2) 08/19/18 07:00 Ur Leukocyte Esterase Negative (Negative) 08/19/18 07:00 Urine RBC Less than 1 /hpf (0-3) 08/19/18 07:00 Urine WBC Less than 1 /hpf (0-5) 08/19/18 07:00 Ur Microscopic Review Not Reportable 08/19/18 07:00 Impressions Chest X-Ray 08/18/18 10:25 CONCLUSION: No acute intrathoracic disease. Stable exam. Labs on day of discharge: Labs from last 24 hours 08/22/18 08/22/18 08/21/18 11:50 08:09 20:03 POC Glucose 307 H 344 H 277 H 08/21/18 16:43 POC Glucose 278 H Preliminary micro results at discharge 08/18/18 20:57 Aerobic Blood Culture - Preliminary Blood - Peripheral No growth in 4 days Anaerobic Blood Culture - Preliminary No growth in 4 days 08/18/18 20:52 Aerobic Blood Culture - Preliminary Blood - Peripheral No growth in 4 days Anaerobic Blood Culture - Preliminary No growth in 4 days - Impressions ITS Impressions Chest X-Ray 08/18/18 10:25 CONCLUSION: No acute intrathoracic disease. Stable exam. Discharge Plan - Discharge Disposition Patient Disposition: Discharge Home - Discharge Condition Condition: Good - Discharge Order Discharge Orders: Discharge Order (Routine); Ordered 08/22/18 Ordered By: Scott Davis - Discharge Details Anticipated Discharge Date: 08/22/18 Discharge Comment: DC TO HOME - Physicians Team Primary Care Provider: [facility] Attending Provider: Scott Davis Other Providers: [employer] ; Juliano Christy MD
--- NOTE | 2018-08-22 16:19 | MB ---
cc: Juliano Christy MD DATE: 08/22/2018 REQUESTING PHYSICIAN: Dr. Davis. REASON FOR CONSULTATION: COPD exacerbation. HISTORY OF PRESENT ILLNESS: Mr. Perry is a pleasant 63-year-old male with longstanding history of COPD, hypertension, atrial fibrillation and is status post ablation and JAZMIN. He came to the hospital with worsening of his shortness of breath. He says when the weather gets cold his breathing gets worse. He has been having wheezing. Denied any fever, chills, or night sweats. [facility] was called and he came to the hospital. He had workup done in the hospital. His blood gas showed pH 7.36, bicarbonate 22, saturation 87% on 2 liter nasal cannula. CBC shows WBC count 26.5, hemoglobin 14, hematocrit 41. Blood sugar 273. Sodium 132, potassium 4.5, chloride 103, CO2 of 26, BUN 18, creatinine 0.96. PAST MEDICAL HISTORY: Significant for history of COPD, history of hypertension, diabetes mellitus, atrial fibrillation status post JAZMIN and ablation. MEDICATIONS: He is currently takin. Nebulizer treatment with DuoNeb 4 times a day. 2. Eliquis 5 mg twice a day. 3. Dulcolax p.r.n. 4. Symbicort 160/4.5 two puffs twice a day. 5. Diltiazem 120 mg a day. 6. Mucinex 600 mg twice a day. 7. He is on Insulin. 8. Levaquin 750 mg a day. 9. Zofran p.r.n. 10. Pravachol 80 mg a day. 11. Prednisone 20 mg twice a day. ALLERGIES: HE IS ALLERGIC TO CEPHALEXIN AND LISINOPRIL. SOCIAL HISTORY: Single was never . Used to work for heavy equipment. He has a long history of smoking, which he quit about a month ago. He lives with his brother. No children. REVIEW OF SYSTEMS: He walks about a block or two. Normally, he follows [facility] by Dr. Cardozo PHYSICAL EXAMINATION: GENERAL: WBWN WM, mildly short of breath. VITAL SIGNS: Blood pressure 132/72, heart rate 93, respirations 20, temperature 97.4. HEENT: Pupils are equal and reactive to light. Oral mucosa and nasal mucosa normal. NECK: Supple. JVD not raised. CHEST: He has expiratory rhonchi. HEART: S1, S2 normal. ABDOMEN: Benign. EXTREMITIES: No edema. IMPRESSION: 1. chronic obstructive pulmonary disease with exacerbation. He is improving. He still has some wheezing, but feels that is his baseline and is able to ambulate a much more significant distance. 2. Hypertension. 3. History of atrial fibrillation. 4. Leukocytosis, probably secondary to steroids. PLAN: I discussed with the patient that home oxygen is arranged. He will be on prednisone 20 mg twice a day, Symbicort twice a day, nebulizer treatments 4 times, and continue antibiotic. I advised him to not to smoke again and he will follow at [facility] and he will need to see a agricultural systems specialist at [facility]. Thank you, Dr. Davis, for this consult. MD KATRIN Westbrook/larry/dorota , 03:18 PM , 03:29 PM HELIO
== END 2018-08-22 15:31 | disposition home or self-care (01) ==
LOC: NEPE 10:12 → INTOOBSV 12:47 → NEDA 12:47 → N04 16:22
PROVIDERS: ADMIT Hospitalist; ATTEND Hospitalist